=== PATIENT | female | born 1985 | race Caucasian/White ===

== ENCOUNTER 2016-07-08 07:46 | Observation (INO) | payer OTHER ==
[~2016-07-08] VITALS: Ht 162.6 cm; Wt 70.4 kg
[~2016-07-08 07:46] MED LIST: BUPR150T11 PO; COLA50CA3 AD; IBUP80TA PO; PERC7.5T12 PO; PRENTAB40 PO
[2016-07-08] MEDS ORDERED: CHARCOAL ACTIVATED LIQUID 25 GM/120 ML BTL As Ordered ONE (08:34)
[2016-07-08 08:42] LABS: MEAN CORPUSCULAR HEMOGLOBIN 29.7 pg (27.0-33.0); MEAN CORPUSCULAR VOLUME 87.4 fl (80.0-96.0); RED CELL DISTRIBUTION WIDTH 12.8 % (11.5-14.5); WHITE BLOOD COUNT 8.2 K/mm3 (4.0-10.0)
[2016-07-08 08:54] LABS: AMPHETAMINES LEVEL URINE NEGATIVE (NEGATIVE); BENZODIAZEPINES URINE NEGATIVE (NEGATIVE); COCAINE METABOLITE URINE NEGATIVE (NEGATIVE); CONTROL LINE INT CTR LINE PRESENT; METHADONE URINE NEGATIVE (NEGATIVE); OPIATES URINE NEGATIVE (NEGATIVE); TRICYCLIC ANTIDEPRESS URINE NEGATIVE (NEGATIVE)
[2016-07-08 08:58] LABS: CONTROL LINE HCG INT CTR LINE PRESENT
[2016-07-08 09:13] LABS: ALBUMIN 3.8 GM/DL (3.2-5.2); ALBUMIN/GLOBULIN RATIO 1.19 (1.00-1.93); ALKALINE PHOSPHATASE 66 U/L (45-117); ALT/SGPT 38 U/L (12-78); ANION GAP 7 MEQ/L (8-16); AST/SGOT 23 U/L (15-37); BILIRUBIN,DIRECT 0.1 MG/DL (0.0-0.2); BILIRUBIN,TOTAL 0.6 MG/DL (0.2-1.0); BLOOD UREA NITROGEN 13 MG/DL (7-18); CALCIUM LEVEL 8.7 MG/DL (8.5-10.1); CARBON DIOXIDE LEVEL 26 MEQ/L (21-32); CHLORIDE LEVEL 107 MEQ/L (98-107); CREATININE FOR GFR 0.65 MG/DL (0.55-1.02); GLOMERULAR FILTRATION RATE > 60.0 (>60); GLUCOSE, FASTING 90 MG/DL (70-105); POTASSIUM SERUM 3.9 MEQ/L (3.5-5.1); SODIUM LEVEL 140 MEQ/L (136-145)
[2016-07-08] MEDS ORDERED: WELLTAB40 PO (09:19)
[2016-07-08] MEDS ORDERED: DOXY-278 PO (09:19)
[2016-07-08] MEDS ORDERED: FLUO20CA9 PO (09:19)
[2016-07-08 13:53] VITALS: BP 125/68
--- NOTE | 2016-07-08 15:18 | HPEPDOC ---
General Date of Admission Jul 08, 2016 at 12:14 Chief Complaint The patient is a 31-year-old female admitted with a reason for visit of Accidental Medication Error. Source: Patient Exam Limitations: No limitations Timing/Duration: 1-3 hours Severity: Mild Associated Symptoms: Nausea History of Present Illness 31 year old female woke up early this morning, and possibly took her Wellbutrin ER. Went back to sleep, woke up again and took her medication, possibly repeat dosing. Patient denies any suicidal ideation, denies any history of suicidal ideation. Denies any other complaints, denies chest pain, shortness of breath, headaches, abdominal pain, N/V/D. States she had some minor nausea this morning however she attributes this to her anxiety from her potential medication error. Home Medications Scheduled Bupropion HCl (Wellbutrin Xl) 300 Mg Tab 300 MG PO DAILY (Reported) Doxycycline Hyclate (Doxycycline) 100 Mg Cap 200 MG PO DAILY (Reported) Fluoxetine Hcl (Fluoxetine HCl) 20 Mg Cap 20 MG PO DAILY (Reported) Allergies Coded Allergies: No Known Drug Allergy (Verified Allergy, Unknown, 08/30/12) Past Medical History Medical History 1. Anxiety/depression 2. Acne vulgaris Social History * Smoker: non-smoker Alcohol: denies Drugs: denies Review of Symptoms Constitutional: Denies: Chills, Fatigue, Fever, Lethargy, Malaise, Night Sweats , Other, Weakness, Weight Loss Eyes: Denies: Conjunctivae inflammation, Eyelid inflammation, Other, Pain, Redness, Vision change ENT: Denies: Dysphagia, Ear Pain, Epistaxis, Head Aches, Other Symptoms, Post Nasal Drip, Sinus Congestion, Sore Throat Skin: Denies: Breakdown, Bruising, Dry, Itching, Jaundice, Lesions, Nail Changes, Other, Rash Pulmonary: Denies: Cough, Dyspnea, Other Symptoms, Pleuritic Chest Pain Cardiovascular: Denies: Chest Pain, Edema, Lt Headedness, Orthopnea, Other Symptoms, Palpitations, Paroxysmal Noc. Dyspnea Gastrointestinal: Denies: Abdominal Pain, Constipation, Diarrhea, Hematochezia , Melena, Nausea, Other Symptoms, Vomiting Genitourinary: Denies: Dysuria, Frequency, Hematuria, Incontinence, Other Symptoms, Retention Physical Examination General Exam: Positive: Alert, Cooperative, No Acute Distress Eye Exam: Positive: Conjunctiva & lids normal, EOMI, PERRLA, Negative: Sclera icteric ENT Exam: Positive: Atraumatic Neck Exam: Positive: Supple Chest Exam: Positive: Clear to auscultation, Normal air movement Heart Exam: Positive: Rate Normal, Regular Rhythm Telemetry: Positive: No significant arrhythmia Abdomen Exam: Positive: Normal bowel sounds, Soft, Negative: Tenderness Extremity Exam: Negative: Edema Vital Signs Refer to ER documentation. Laboratory Data Labs 24H Laboratory Tests 2 07/08/16 08:26: Acetaminophen Level < 2.0L, Aspartate Amino Transf (AST/SGOT) 23, Alanine Aminotransferase (ALT/SGPT) 38, Alkaline Phosphatase 66, Total Bilirubin 0.6, Direct Bilirubin 0.1, Albumin 3.8, Albumin/Globulin Ratio 1.19, Anion Gap 7L, Calcium Level 8.7, Ethyl Alcohol Level < 0.003, Glomerular Filtration Rate > 60.0, Human Chorionic Gonadotropin, Qual NEGATIVE, Salicylates Level < 1.7L, Thyroid Stimulating Hormone (TSH) 1.290, Total Protein 7.0, Urine Amphetamine Level NEGATIVE, Urine Benzodiazepines Screen NEGATIVE, Urine Cannabinoids NEGATIVE, Urine Cocaine Metabolite NEGATIVE, Urine Opiates Screen NEGATIVE, Urine Barbiturates, Qualitative NEGATIVE, Urine Methadone Screen NEGATIVE, Urine Tricyclic Antidepressants NEGATIVE CBC/BMP Laboratory Tests 07/08/16 08:26 Red Blood Count 4.60, Mean Corpuscular Volume 87.4, Mean Corpuscular Hemoglobin 29.7, Mean Corpuscular Hemoglobin Concent 34.0, Red Cell Distribution Width 12.8 Problems (1) Accidental medication error Status: Acute Response to Treatment: Stable Discussed With: Patient Problem Specific Plan: Monitor Clinically, Repeat Labs Problem Text: Poison control contacted, recommending 24 hour observation. Admitted for telemetry monitoring, will check labs in am. Discussed strategies to prevent repeat error including using dosettes. (2) Acne Status: Chronic Discussed With: Patient Problem Text: Continue with doxycycline as per home regimen. Plan / VTE VTE Prophylaxis Ordered?: No VTE Exclusion Mechanical Proph: Low Risk for VTE Plan Plan Monitor 24 hours as per poison control recommendations. Disposition Anticipate discharge in 24 hours. Diet: Continue Current Activity: Continue Current Diagnostics: Repeat Labs in AM Anticipated Discharge: Home MANGO CASTELAN MD Jul 08, 2016 15:18
[2016-07-08 16:30] VITALS: BP 140/81
--- NOTE | 2016-07-08 16:31 | EDDOCDS ---
Nurse's Notes [facility] Name: Aisha Palm Age: 31 yrs Sex: Female : 1985 Arrival Date: 07/08/2016 Time: 07:46 Bed Admit Hold Private MD: Caesar Medrano Diagnosis: Poisoning by other antipsychotics and neuroleptics, accidental (unintentional)-rule out Presentation: 07/08 07:47 Presenting complaint: Patient states: states I may have taken all of my medicines [facility] twice. States got up earlier than normal with different routine. Medicines Wellbutrin 300 mg, doxycycline 200mg, and prozac 20 mg. can not recall specifically taking 1st dose, so is unsure if additional were take, Now with nausea , no vomiting and slightly sweaty. Poison control encouraged ED visit. Adult Sepsis Screening: The patient does not have new or worsening altered mentation. Patient's respiratory rate is less than 22. Systolic blood pressure is greater than 100. Patient has a qSOFA score of 0- Negative Sepsis Screen. Suicide/Homicide risk assessment- the patient denies having any suicidal and/or homicidal ideations and does not present with any other emotional, behavioral or mental health complaints. Status: Patient is not a library services dean or dependent. Transition of care: patient was not received from another setting of care. 07:47 Acuity: INDY Level 4 [facility] 07:47 Method Of Arrival: Ambulance [facility] 08:17 Presenting complaint: poison control contacted. provider aware of recommendations. [facility] Triage Assessment: 07:53 General: Appears in no apparent distress. Pain: Denies pain. HIV screening NA for this [facility] visit Offered previously. 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 Wellbutrin XL 300 mg Oral Tb24 1 tab once daily 2. doxycycline hyclate 200 mg Oral TbEC 1 tab once daily 3. Prozac 20 mg Oral cap 1 cap once daily - PMHx: Depression; - PSHx: ; - Social history: Smoking status: Patient uses tobacco products, current some day smoker. No barriers to communication noted, The patient speaks fluent Cymraes. - Family history: Not pertinent. - : The pt / caregiver states he / she is not on anticoagulants. Home medication list is obtained from the patient. - Exposure Risk Screening:: None identified. Screenin:11 Screening information is obtained from the patient. Fall risk: No risks identified. jmk Assistance ADL's: requires no assistance with activities of daily living. Abuse/DV Screen: The patient / caregiver reports he/she is: not in a situation that causes fear, pain or injury. Nutritional screening: No deficits noted. Advance Directives: Currently, there is no health care proxy. There is no active DNR order. There is no living will. There is no Power of Back Up Machine Operator. Advance directive information has not previously been placed in an [facility] medical record. Further advance directive information is declined. home support is adequate. Assessment: 09:11 General: Appears skin warm and dry color satisfactory . moist pink oral mucosa. no resp jmk distress noted. chest CTA. abd soft and non distended with bowel sounds present x 4. no diaphoresis. monitor is sr without ectopy. Pleasant and conversive. appropriate eye contact and content of reesponses.. 10:52 General: Appears quielty awaiting bed avail. monitor is sr. without symptoms. jmk 12:06 General: Appears no symptoms. SR. awaiting admssion. jmk 13:47 General: Appears without symptoms. remains pleasant and cooperative. diet provided and jmk taken well. Monitor SR. 15:35 General: Appears patiently awaiting bed avail. jmk 16:25 General: Appears without symptoms. Monitor is sr without ectopy.. percy Social Work Consult: 10:21 Social Work Note: Pt is being admitted for accidental ingestion of her medications. Pt ac states she got up earlier than usual, took her meds, and then later took them again. Pt states she began feeling nauseated so decided to come to ED. PT denies SI/HI, no AH/VH. Pt states her daughter, Casandra, was to have her intake at [facility] at 0930, did not call to cancel due to being in ED. Colin contacted by this commercial lines underwriter at pt's request to inform them of reason for pt's daughter being a no show. Colin states they will not count this against mother, will inform therapist. Pt to be medically admitted for further observation. Vital Signs: 07:53 BP 120 / 84; Pulse 86; Resp 16; Temp 97.2; Pulse Ox 99% ; Weight 68.04 kg; Height 5 ft. k 4 in. (162.56 cm); 08:32 BP 128 / 73 (auto/); jmk 08:33 Pulse 78 MON; Pulse Ox 100% ; jmk 08:53 Pulse 88 MON; Pulse Ox 97% ; jmk 08:54 BP 109 / 73 (auto/); jmk 09:23 Pulse 84 MON; Pulse Ox 98% ; jmk 09:24 BP 117 / 74 (auto/); jmk 09:54 BP 123 / 79 (auto/); jmk 09:54 Pulse 88 MON; Pulse Ox 98% ; jmk 10:23 Pulse 86 MON; Pulse Ox 97% ; jmk 10:24 BP 112 / 67 (auto/); Resp 16; jmk 13:47 BP 125 / 68; Pulse 98; Resp 16; jmk 16:23 BP 141 / 63; Pulse 87; Resp 17; Temp 98.7(T); Pulse Ox 98% on R/A; lr2 07:53 Body Mass Index 25.75 (68.04 kg, 162.56 cm) [facility] Vitals: 07:53 Log In Time N/A - ambulance arrival. [facility] ED Course: 07:47 Patient visited by Jazzy Shields PCA. rs6 07:47 Caesar Medrano is Private Physician. rs6 07:47 Ruby Lam,FIONA is Primary Nurse. rs6 07:47 Patient moved to Waiting rs6 07:47 Patient moved to 8 rs6 07:51 Triage Initiated jmk 07:54 Fabi Whitney MD is Attending Physician. ml 07:54 Patient visited by Fabi Whitney MD. ml 08:38 [facility] Payment Agreement was scanned into [employer] and attached to record. mm15 08:44 Inserted saline lock: 20 gauge in left antecubital area. jmk 09:07 Patient visited by Jazzy Shields PCA. rs6 09:11 The patient / caregiver is instructed regarding the plan of care and ED course. jmk 09:14 Patient visited by Caesar Peck,FIONA. jmk 09:15 Chapincito Mckee is Hospitalizing Provider. ml 13:00 Patient moved to Admit Hold kpj 13:08 Patient visited by Anni Lundberg PCA. ar3 13:08 Diet: Patient refused offered diet. patient had other food brought in by a family ar3 member . 15:33 T-Sheet-- Draft Copy was scanned into [employer] and attached to record. gb 16:25 No procedures done that require assistance. jmk Administered Medications: 08:43 Drug: Activated Charcoal (1g/kg) 70 grams [activated charcoal 25 gram/120 mL oral jmk suspension (6720 drps)] Route: PO; 09:11 CANCELLED (Other Intervention Used): LORazepam 1 mg PO once jmk Order Results: Lab Order: Acetaminophen Level; SPEC'M 07/08/16 08:26 Test: ACETAMINOPHEN LEVEL; Value: < 2.0; Range: 10.0-30.0; Abnormal: Below low normal; Units: UG/ML; Status: F Lab Order: Basic Metabolic Profile; SPEC'M 07/08/16 08:26 Test: GLUCOSE, FASTING; Value: 90; Range: 70-105; Units: MG/DL; Status: F Test: BLOOD UREA NITROGEN; Value: 13; Range: 7-18; Units: MG/DL; Status: F Test: CREATININE FOR GFR; Value: 0.65; Range: 0.55-1.02; Units: MG/DL; Status: F Test: SODIUM LEVEL; Range: 136-145; Units: MEQ/L; Status: I Test: POTASSIUM SERUM; Range: 3.5-5.1; Units: MEQ/L; Status: I Test: CHLORIDE LEVEL; Range: 98-107; Units: MEQ/L; Status: I Test: CARBON DIOXIDE LEVEL; Range: 21-32; Units: MEQ/L; Status: I Test: ANION GAP; Range: 8-16; Units: MEQ/L; Status: I Test: CALCIUM LEVEL; Range: 8.5-10.1; Units: MG/DL; Status: I Test: GLOMERULAR FILTRATION RATE; Value: > 60.0; Range: >60; Status: F Test: SODIUM LEVEL; Value: 140; Range: 136-145; Units: MEQ/L; Status: F Test: POTASSIUM SERUM; Value: 3.9; Range: 3.5-5.1; Units: MEQ/L; Status: F Test: CHLORIDE LEVEL; Value: 107; Range: 98-107; Units: MEQ/L; Status: F Test: CARBON DIOXIDE LEVEL; Value: 26; Range: 21-32; Units: MEQ/L; Status: F Test: ANION GAP; Value: 7; Range: 8-16; Abnormal: Below low normal; Units: MEQ/L; Status: F Test: CALCIUM LEVEL; Value: 8.7; Range: 8.5-10.1; Units: MG/DL; Status: F Test Note: ; Units are mL/min/1.73 m2 Chronic Kidney Disease Staging per NKF: Stage I & II GFR >=60 Normal to Mildly Decreased Stage III GFR 30-59 Moderately Decreased Stage IV GFR 15-29 Severely Decreased Stage V GFR <15 Very Little GFR Left ESRD GFR <15 on PREPRESS STRIPPER Lab Order: Complete Blood Count; SPEC'M 07/08/16 08:26 Test: WHITE BLOOD COUNT; Value: 8.2; Range: 4.0-10.0; Units: K/mm3; Status: F Test: RED BLOOD COUNT; Value: 4.60; Range: 4.00-5.40; Units: M/mm3; Status: F Test: HEMOGLOBIN; Value: 13.7; Range: 12.0-16.0; Units: g/dl; Status: F Test: HEMATOCRIT; Value: 40.2; Range: 36.0-47.0; Units: %; Status: F Test: MEAN CORPUSCULAR VOLUME; Value: 87.4; Range: 80.0-96.0; Units: fl; Status: F Test: MEAN CORPUSCULAR HEMOGLOBIN; Value: 29.7; Range: 27.0-33.0; Units: pg; Status: F Test: MEAN CORPUSCULAR HGB CONC; Value: 34.0; Range: 32.0-36.5; Units: g/dl; Status: F Test: RED CELL DISTRIBUTION WIDTH; Value: 12.8; Range: 11.5-14.5; Units: %; Status: F Test: PLATELET COUNT, AUTOMATED; Value: 218; Range: 150-450; Units: k/mm3; Status: F Lab Order: Drug Eval Toxicology ED Only; SPEC'M 07/08/16 08:26 Test: AMPHETAMINES LEVEL URINE; Value: NEGATIVE; Range: NEGATIVE; Status: F Test: BARBITURATES URINE; Value: NEGATIVE; Range: NEGATIVE; Status: F Test: BENZODIAZEPINES URINE; Value: NEGATIVE; Range: NEGATIVE; Status: F Test: CANNABINOIDS URINE; Value: NEGATIVE; Range: NEGATIVE; Status: F Test: COCAINE METABOLITE URINE; Value: NEGATIVE; Range: NEGATIVE; Status: F Test: METHADONE URINE; Value: NEGATIVE; Range: NEGATIVE; Status: F Test: OPIATES URINE; Value: NEGATIVE; Range: NEGATIVE; Status: F Test: TRICYCLIC ANTIDEPRESS URINE; Value: NEGATIVE; Range: NEGATIVE; Status: F Test Note: ; ALL PRESUMPTIVE POSITIVE FINDINGS ARE UNCONFIRMED NORMAL VALUES THRESHOLD IN NG/ML AMPHETAMINES 1000 METHAMPHETAMINES 1000 BARBITURATES 300 BENZODIAZEPINES 300 CANNABINOIDS (THC) 50 COCAINE METABOLITE 300 METHADONE 300 OPIATES 300 PHENCYCLIDINE 25 TRICYCLIC ANTIDEPRESSANTS 1000 RESULTS ARE FOR MEDICAL PURPOSES ONLY. ALL URINE SPECIMENS WILL BE SAVED FOR 3 DAYS. IF CONFIRMATION OF A PRESUMPTIVE POSTIVE SCREEN RESULT IS DESIRED, CALL CHEMISTRY ([phone]) AND REQUEST URINE TO BE SENT TO REFERENCE LAB. FOR A LIST OF CLOSELY RELATED COMPOUNDS PLEASE CALL THE LAB. Lab Order: Ethyl Alcohol (ethanol); SPEC'M 07/08/16 08:26 Test: ETHYL ALCOHOL (ETHANOL); Value: < 0.003; Range: 0.000-0.010; Units: %; Status: F Lab Order: HCG,Serum Qualitative; SPEC'M 07/08/16 08:26 Test: HCG, SERUM QUALITATIVE; Value: NEGATIVE; Range: NEGATIVE; Status: F Lab Order: Liver Profile; SPEC' 07/08/16 08:26 Test: AST/SGOT; Value: 23; Range: 15-37; Units: U/L; Status: F Test: ALT/SGPT; Value: 38; Range: 12-78; Units: U/L; Status: F Test: ALKALINE PHOSPHATASE; Value: 66; Range: 45-117; Units: U/L; Status: F Test: BILIRUBIN,TOTAL; Value: 0.6; Range: 0.2-1.0; Units: MG/DL; Status: F Test: BILIRUBIN,DIRECT; Value: 0.1; Range: 0.0-0.2; Units: MG/DL; Status: F Test: TOTAL PROTEIN; Value: 7.0; Range: 6.4-8.2; Units: GM/DL; Status: F Test: ALBUMIN; Value: 3.8; Range: 3.2-5.2; Units: GM/DL; Status: F Test: ALBUMIN/GLOBULIN RATIO; Value: 1.19; Range: 1.00-1.93; Status: F Lab Order: Salicylate Level; SPEC'M 07/08/16 08:26 Test: SALICYLATE LEVEL; Value: < 1.7; Range: 5.0-30.0; Abnormal: Below low normal; Units: MG/DL; Status: F Lab Order: Thyroid Stimulating Hormone; SPEC'M 07/08/16 08:26 Test: THYROID STIMULATING HORMONE; Value: 1.290; Range: 0.358-3.740; Units: uIU/ML; Status: F Outcome: 09:16 Decision to Hospitalize by Provider. 16:25 Discharge Assessment: Patient awake, alert and oriented x 3. No cognitive and/or k functional deficits noted. Patient verbalized understanding of disposition instructions. patient administered narcotics - no. The following High Risk Discharge criteria are identified: None. Condition: good. Discharge instructions given to patient, Instructed on discharge instructions, follow up and referral plans. medication usage, Demonstrated understanding of instructions, medications. No special radiology studies were completed. Admission hand-off: Report called to monty gupta. Property :Personal belongings accompany Pt. 16:30 Patient left the ED. percy Signatures: Fabi Whitney MD MD ml Jobson, Karen, RN RN Caesar Briggs,RN RN percy Son, Salazar, PSA PSA ac Tab, Jaimie, Reg Reg gb Anni Lundberg, OFFICE HELPER OFFICE HELPER ar3 David Mandujano mm15 Jazzy Shields, OFFICE HELPER OFFICE HELPER rs6 Irais Payton lr2 Corrections: (The following items were deleted from the chart) 07:56 07:47 Presenting complaint: Patient states: states I may have taken all of my medicines percy twice. States got up earlier than normal with different routine. Medicines Wellbutrin 300 mg, doxycycline 200mg, and prozac 25 mg. can not recall specifically taking 1st dose, so is unsure if additional were take, Now with nausea , no vomiting and slightly sweaty. Poison control encouraged ED visit. percy MTDD
--- NOTE | 2016-07-08 16:31 | EDDOCDS ---
Physician Documentation [facility] Name: Aisha Palm Age: 31 yrs Sex: Female : 1985 Arrival Date: 07/08/2016 Time: 07:46 Bed Admit Hold Private MD: Caesar Medrano Disposition: 07/08 09:16 Critical Care:. ml Disposition: 07/08/16 09:16 Hospitalization ordered by Chapincito Mckee for Inpatient Admission. Preliminary diagnosis is Poisoning by other antipsychotics and neuroleptics, accidental (unintentional) - rule out. - Bed requested for PCU. - Status is Inpatient Admission. jmk - Condition is Stable. - Problem is new. - Symptoms are unchanged. Historical: - Allergies: no known allergies; - Home Meds: 1. Wellbutrin XL 300 mg Oral Tb24 1 tab once daily 2. doxycycline hyclate 200 mg Oral TbEC 1 tab once daily 3. Prozac 20 mg Oral cap 1 cap once daily - PMHx: Depression; - PSHx: ; - Social history: Smoking status: Patient uses tobacco products, current some day smoker. No barriers to communication noted, The patient speaks fluent Jamaican. - Family history: Not pertinent. - : The pt / caregiver states he / she is not on anticoagulants. Home medication list is obtained from the patient. - Exposure Risk Screening:: None identified. 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 4 in. (162.56 cm); 08:32 BP 128 / 73 (auto/); jmk 08:33 Pulse 78 MON; Pulse Ox 100% ; jmk 08:53 Pulse 88 MON; Pulse Ox 97% ; jmk 08:54 BP 109 / 73 (auto/); jmk 09:23 Pulse 84 MON; Pulse Ox 98% ; jmk 09:24 BP 117 / 74 (auto/); jmk 09:54 BP 123 / 79 (auto/); jmk 09:54 Pulse 88 MON; Pulse Ox 98% ; jmk 10:23 Pulse 86 MON; Pulse Ox 97% ; jmk 10:24 BP 112 / 67 (auto/); Resp 16; jmk 13:47 BP 125 / 68; Pulse 98; Resp 16; jmk 16:23 BP 141 / 63; Pulse 87; Resp 17; Temp 98.7(T); Pulse Ox 98% on R/A; lr2 07:53 Body Mass Index 25.75 (68.04 kg, 162.56 cm) percy MDM: 07:59 Call Poison Control ordered. ml 08:00 ECG WITH READING ER PHYS+CARDIAG ordered. EDMS 08:12 Financial registration complete. mm15 08:16 IV Saline Lock ordered. ml 08:16 Activated Charcoal (1g/kg) Suspension 70 grams PO once ordered. ml 08:16 Consult PFS/PSA/Electronic Train Control Technician ordered. ml 08:16 Consult PFS/PSA/Electronic Train Control Technician: Patient's case requires discussion with on-call ml Psychiatrist ordered. 08:16 PSA/PFS to call Nursing Packaging Sales Representative, to enter patient data on [place] Safe Act if patient ml involuntarily admitted or transferred for SI or HI ordered. 08:16 Call Poison Control ordered. ml 08:16 Lining Scrubber/Pulse Ox/q 15 min VS ordered. ml 08:16 Confirm accurate psychiatric medication list and times of last dosage ordered. ml 08:16 Detain Pt Until Medically/PFS Cleared ordered. ml 08:16 Rhythm Strip to chart ordered. ml 08:17 Acetaminophen Level Ordered. EDMS 08:17 Basic Metabolic Profile Ordered. EDMS 08:17 Complete Blood Count Ordered. EDMS 08:17 Drug Eval Toxicology ED Only Ordered. EDMS 08:17 Ethyl Alcohol (ethanol) Ordered. EDMS 08:17 HCG,Serum Qualitative Ordered. EDMS 08:17 Liver Profile Ordered. EDMS 08:17 Salicylate Level Ordered. EDMS 08:17 Thyroid Stimulating Hormone Ordered. EDMS 08:17 BED REQUEST+ADM ordered. EDMS 08:38 [facility] [place] Agreement was scanned into [employer] and attached to record. mm15 09:02 Complete Blood Count Reviewed. ml 09:02 Drug Eval Toxicology ED Only Reviewed. ml 09:02 HCG,Serum Qualitative Reviewed. ml 09:13 Consult PFS/PSA/Electronic Train Control Technician ordered. ml 09:51 Acetaminophen Level Reviewed. ml 09:51 Basic Metabolic Profile Reviewed. ml 09:51 Salicylate Level Reviewed. ml 09:51 Ethyl Alcohol (ethanol) Reviewed. ml 09:51 HCG,Serum Qualitative Reviewed. ml 09:51 Liver Profile Reviewed. ml 09:51 Thyroid Stimulating Hormone Reviewed. ml 11:31 Consult PFS/PSA/Electronic Train Control Technician complete. jl 12:14 Consult PFS/PSA/Electronic Train Control Technician complete. jl 12:19 Admission / Observation Status ordered. EDMS 12:19 REGULAR DIET ordered. EDMS 15:33 T-Sheet-- Draft Copy was scanned into [employer] and attached to record. gb Administered Medications: 08:43 Drug: Activated Charcoal (1g/kg) 70 grams [activated charcoal 25 gram/120 mL oral jmk suspension (6720 drps)] Route: PO; 09:11 CANCELLED (Other Intervention Used): LORazepam 1 mg PO once jmk Critical Care Time: 09:16 Critical care time: Bedside Care: 90 minutes. Total time: 90 minutes ml Signatures: Dispatcher [employer] EDMI Fabi Whitney MD MD ml Jobson, Karen RN RN Caesar BriggsRN Thiago Myers, PSA PSA Jaimie Parikh, Reg Reg David Patiño mm15 Jazzy Shields, BYRON TRAPEZE PERFORMER rs6 The chart was reviewed and I authenticate all verbal orders and agree with the evaluation and treatment provided.Corrections: (The following items were deleted from the chart) 09:11 09:05 LORazepam 1 mg PO once ordered. percy Attachments: 08:38 [facility] Payment Agreement mm15 15:33 T-Sheet-- Draft Copy gb MTDD
[2016-07-08 21:16] VITALS: BP 127/73
[2016-07-08 23:59] VITALS: BP 119/71
[2016-07-09 05:30] VITALS: BP 134/87
[2016-07-09 06:03] LABS: MEAN CORPUSCULAR HEMOGLOBIN 29.8 pg (27.0-33.0); MEAN CORPUSCULAR HGB CONC 33.2 g/dl (32.0-36.5); MEAN CORPUSCULAR VOLUME 89.9 fl (80.0-96.0); WHITE BLOOD COUNT 7.3 K/mm3 (4.0-10.0)
[2016-07-09 06:23] LABS: ALBUMIN 3.6 GM/DL (3.2-5.2); ALBUMIN/GLOBULIN RATIO 1.16 (1.00-1.93); ALKALINE PHOSPHATASE 61 U/L (45-117); ALT/SGPT 41 U/L (12-78); ANION GAP 8 MEQ/L (8-16); AST/SGOT 25 U/L (15-37); BILIRUBIN,TOTAL 0.6 MG/DL (0.2-1.0); BLOOD UREA NITROGEN 15 MG/DL (7-18); CALCIUM LEVEL 8.3 MG/DL (8.5-10.1); CARBON DIOXIDE LEVEL 25 MEQ/L (21-32); CHLORIDE LEVEL 107 MEQ/L (98-107); CREATININE FOR GFR 0.61 MG/DL (0.55-1.02); GLOMERULAR FILTRATION RATE > 60.0 (>60); GLUCOSE, FASTING 91 MG/DL (70-105); POTASSIUM SERUM 3.9 MEQ/L (3.5-5.1); SODIUM LEVEL 140 MEQ/L (136-145); TOTAL PROTEIN 6.7 GM/DL (6.4-8.2)
--- NOTE | 2016-07-09 07:43 | ECGEPIP ---
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
[2016-07-09 08:00] VITALS: BP 123/78
[2016-07-09] MEDS ORDERED: buPROPion **XL** TABLET 150MG (WELLBUTRIN XL) PO SCH (09:00)
[2016-07-09] MEDS ORDERED: DOXYCYCLINE HYCLATE 100 MG TAB PO SCH (09:00)
[2016-07-09] MEDS ORDERED: FLUoxetine 20 MG CAP PO SCH (09:00)
--- NOTE | 2016-07-09 17:10 | IPN ---
DATE: 07/09/2016 Patient is doing well this morning. A little embarrassed that she stayed in the hospital overnight and under those circumstances. No complaints of pain, palpitations, chest pain, or shortness of breath. Temperature 96.9, pulse 78, respiratory rate 18, blood pressure 123/78, 99% on room air. Intake and output notable for a negative fluid balance of -370. Body mass index 26.6. She is awake, appropriately interactive, pleasantly conversant. Breathing is symmetrical and rested. Heart is in a regular rate and rhythm. No arrhythmia on the monitor. Abdomen soft, doughy, nontender. White cell count is 7.3. Creatinine 0.6. ASSESSMENT: This is a 31-year-old with an accidental overdose of Wellbutrin possibly. PLAN: Accidental medication error. I have discussed the use of a pill sorting device so that she can better keep track of her daily medications. This clearly was not any attempt to injure herself. Recommending followup with and recommending continuing all of her home medications at the current doses.
[2016-07-10] MEDS ORDERED: INFLUENZA QUADRIVALENT PF VACCINE 0.5ML SYRINGE/VIAL (90686) IM SCH (09:00)
--- NOTE | 2016-07-10 17:31 | EDDOCDS ---
Nurse's Notes [facility] Name: Aisha Palm Age: 31 yrs Sex: Female : 1985 Arrival Date: 07/08/2016 Time: 07:46 Bed Admit Hold Private MD: Caesar Medrano Diagnosis: Poisoning by other antipsychotics and neuroleptics, accidental (unintentional)-rule out Presentation: 07/08 07:47 Presenting complaint: Patient states: states I may have taken all of my medicines [facility] twice. States got up earlier than normal with different routine. Medicines Wellbutrin 300 mg, doxycycline 200mg, and prozac 20 mg. can not recall specifically taking 1st dose, so is unsure if additional were take, Now with nausea , no vomiting and slightly sweaty. Poison control encouraged ED visit. Adult Sepsis Screening: The patient does not have new or worsening altered mentation. Patient's respiratory rate is less than 22. Systolic blood pressure is greater than 100. Patient has a qSOFA score of 0- Negative Sepsis Screen. Suicide/Homicide risk assessment- the patient denies having any suicidal and/or homicidal ideations and does not present with any other emotional, behavioral or mental health complaints. Status: Patient is not a parking meter servicer or dependent. Transition of care: patient was not received from another setting of care. 07:47 Acuity: INDY Level 4 [facility] 07:47 Method Of Arrival: Ambulance [facility] 08:17 Presenting complaint: poison control contacted. provider aware of recommendations. [facility] Triage Assessment: 07:53 General: Appears in no apparent distress. Pain: Denies pain. HIV screening NA for this [facility] visit Offered previously. 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 Wellbutrin XL 300 mg Oral Tb24 1 tab once daily 2. doxycycline hyclate 200 mg Oral TbEC 1 tab once daily 3. Prozac 20 mg Oral cap 1 cap once daily - PMHx: Depression; - PSHx: ; - Social history: Smoking status: Patient uses tobacco products, current some day smoker. No barriers to communication noted, The patient speaks fluent Guatemalan. - Family history: Not pertinent. - : The pt / caregiver states he / she is not on anticoagulants. Home medication list is obtained from the patient. - Exposure Risk Screening:: None identified. Screenin:11 Screening information is obtained from the patient. Fall risk: No risks identified. jmk Assistance ADL's: requires no assistance with activities of daily living. Abuse/DV Screen: The patient / caregiver reports he/she is: not in a situation that causes fear, pain or injury. Nutritional screening: No deficits noted. Advance Directives: Currently, there is no health care proxy. There is no active DNR order. There is no living will. There is no Power of Mixing Supervisor. Advance directive information has not previously been placed in an [facility] medical record. Further advance directive information is declined. home support is adequate. Assessment: 09:11 General: Appears skin warm and dry color satisfactory . moist pink oral mucosa. no resp jmk distress noted. chest CTA. abd soft and non distended with bowel sounds present x 4. no diaphoresis. monitor is sr without ectopy. Pleasant and conversive. appropriate eye contact and content of reesponses.. 10:52 General: Appears quielty awaiting bed avail. monitor is sr. without symptoms. jmk 12:06 General: Appears no symptoms. SR. awaiting admssion. jmk 13:47 General: Appears without symptoms. remains pleasant and cooperative. diet provided and jmk taken well. Monitor SR. 15:35 General: Appears patiently awaiting bed avail. jmk 16:25 General: Appears without symptoms. Monitor is sr without ectopy.. percy Social Work Consult: 10:21 Social Work Note: Pt is being admitted for accidental ingestion of her medications. Pt ac states she got up earlier than usual, took her meds, and then later took them again. Pt states she began feeling nauseated so decided to come to ED. PT denies SI/HI, no AH/VH. Pt states her daughter, Casandra, was to have her intake at [facility] at 0930, did not call to cancel due to being in ED. Colin contacted by this display card writer at pt's request to inform them of reason for pt's daughter being a no show. Colin states they will not count this against mother, will inform therapist. Pt to be medically admitted for further observation. Vital Signs: 07:53 BP 120 / 84; Pulse 86; Resp 16; Temp 97.2; Pulse Ox 99% ; Weight 68.04 kg; Height 5 ft. k 4 in. (162.56 cm); 08:32 BP 128 / 73 (auto/); jmk 08:33 Pulse 78 MON; Pulse Ox 100% ; jmk 08:53 Pulse 88 MON; Pulse Ox 97% ; jmk 08:54 BP 109 / 73 (auto/); jmk 09:23 Pulse 84 MON; Pulse Ox 98% ; jmk 09:24 BP 117 / 74 (auto/); jmk 09:54 BP 123 / 79 (auto/); jmk 09:54 Pulse 88 MON; Pulse Ox 98% ; jmk 10:23 Pulse 86 MON; Pulse Ox 97% ; jmk 10:24 BP 112 / 67 (auto/); Resp 16; jmk 13:47 BP 125 / 68; Pulse 98; Resp 16; jmk 16:23 BP 141 / 63; Pulse 87; Resp 17; Temp 98.7(T); Pulse Ox 98% on R/A; lr2 07:53 Body Mass Index 25.75 (68.04 kg, 162.56 cm) [facility] Vitals: 07:53 Log In Time N/A - ambulance arrival. [facility] ED Course: 07:47 Patient visited by Jazzy Shields PCA. rs6 07:47 Caesar Medrano is Private Physician. rs6 07:47 Ruby Lam,FIONA is Primary Nurse. rs6 07:47 Patient moved to Waiting rs6 07:47 Patient moved to 8 rs6 07:51 Triage Initiated jmk 07:54 Fabi Whitney MD is Attending Physician. ml 07:54 Patient visited by Fabi Whitney MD. ml 08:38 [facility] Payment Agreement was scanned into [employer] and attached to record. mm15 08:44 Inserted saline lock: 20 gauge in left antecubital area. jmk 09:07 Patient visited by Jazzy Shields PCA. rs6 09:11 The patient / caregiver is instructed regarding the plan of care and ED course. jmk 09:14 Patient visited by Caesar Peck,FIONA. jmk 09:15 Chapincito Mckee is Hospitalizing Provider. ml 13:00 Patient moved to Admit Hold kpj 13:08 Patient visited by Anni Lundberg PCA. ar3 13:08 Diet: Patient refused offered diet. patient had other food brought in by a family ar3 member . 15:33 T-Sheet-- Draft Copy was scanned into [employer] and attached to record. gb 16:25 No procedures done that require assistance. jmk Administered Medications: 08:43 Drug: Activated Charcoal (1g/kg) 70 grams [activated charcoal 25 gram/120 mL oral jmk suspension (6720 drps)] Route: PO; 09:11 CANCELLED (Other Intervention Used): LORazepam 1 mg PO once jmk Order Results: Lab Order: Acetaminophen Level; SPEC'M 07/08/16 08:26 Test: ACETAMINOPHEN LEVEL; Value: < 2.0; Range: 10.0-30.0; Abnormal: Below low normal; Units: UG/ML; Status: F Lab Order: Basic Metabolic Profile; SPEC'M 07/08/16 08:26 Test: GLUCOSE, FASTING; Value: 90; Range: 70-105; Units: MG/DL; Status: F Test: BLOOD UREA NITROGEN; Value: 13; Range: 7-18; Units: MG/DL; Status: F Test: CREATININE FOR GFR; Value: 0.65; Range: 0.55-1.02; Units: MG/DL; Status: F Test: SODIUM LEVEL; Range: 136-145; Units: MEQ/L; Status: I Test: POTASSIUM SERUM; Range: 3.5-5.1; Units: MEQ/L; Status: I Test: CHLORIDE LEVEL; Range: 98-107; Units: MEQ/L; Status: I Test: CARBON DIOXIDE LEVEL; Range: 21-32; Units: MEQ/L; Status: I Test: ANION GAP; Range: 8-16; Units: MEQ/L; Status: I Test: CALCIUM LEVEL; Range: 8.5-10.1; Units: MG/DL; Status: I Test: GLOMERULAR FILTRATION RATE; Value: > 60.0; Range: >60; Status: F Test: SODIUM LEVEL; Value: 140; Range: 136-145; Units: MEQ/L; Status: F Test: POTASSIUM SERUM; Value: 3.9; Range: 3.5-5.1; Units: MEQ/L; Status: F Test: CHLORIDE LEVEL; Value: 107; Range: 98-107; Units: MEQ/L; Status: F Test: CARBON DIOXIDE LEVEL; Value: 26; Range: 21-32; Units: MEQ/L; Status: F Test: ANION GAP; Value: 7; Range: 8-16; Abnormal: Below low normal; Units: MEQ/L; Status: F Test: CALCIUM LEVEL; Value: 8.7; Range: 8.5-10.1; Units: MG/DL; Status: F Test Note: ; Units are mL/min/1.73 m2 Chronic Kidney Disease Staging per NKF: Stage I & II GFR >=60 Normal to Mildly Decreased Stage III GFR 30-59 Moderately Decreased Stage IV GFR 15-29 Severely Decreased Stage V GFR <15 Very Little GFR Left ESRD GFR <15 on SEAT SCOOPER MACHINE Lab Order: Complete Blood Count; SPEC'M 07/08/16 08:26 Test: WHITE BLOOD COUNT; Value: 8.2; Range: 4.0-10.0; Units: K/mm3; Status: F Test: RED BLOOD COUNT; Value: 4.60; Range: 4.00-5.40; Units: M/mm3; Status: F Test: HEMOGLOBIN; Value: 13.7; Range: 12.0-16.0; Units: g/dl; Status: F Test: HEMATOCRIT; Value: 40.2; Range: 36.0-47.0; Units: %; Status: F Test: MEAN CORPUSCULAR VOLUME; Value: 87.4; Range: 80.0-96.0; Units: fl; Status: F Test: MEAN CORPUSCULAR HEMOGLOBIN; Value: 29.7; Range: 27.0-33.0; Units: pg; Status: F Test: MEAN CORPUSCULAR HGB CONC; Value: 34.0; Range: 32.0-36.5; Units: g/dl; Status: F Test: RED CELL DISTRIBUTION WIDTH; Value: 12.8; Range: 11.5-14.5; Units: %; Status: F Test: PLATELET COUNT, AUTOMATED; Value: 218; Range: 150-450; Units: k/mm3; Status: F Lab Order: Drug Eval Toxicology ED Only; SPEC'M 07/08/16 08:26 Test: AMPHETAMINES LEVEL URINE; Value: NEGATIVE; Range: NEGATIVE; Status: F Test: BARBITURATES URINE; Value: NEGATIVE; Range: NEGATIVE; Status: F Test: BENZODIAZEPINES URINE; Value: NEGATIVE; Range: NEGATIVE; Status: F Test: CANNABINOIDS URINE; Value: NEGATIVE; Range: NEGATIVE; Status: F Test: COCAINE METABOLITE URINE; Value: NEGATIVE; Range: NEGATIVE; Status: F Test: METHADONE URINE; Value: NEGATIVE; Range: NEGATIVE; Status: F Test: OPIATES URINE; Value: NEGATIVE; Range: NEGATIVE; Status: F Test: TRICYCLIC ANTIDEPRESS URINE; Value: NEGATIVE; Range: NEGATIVE; Status: F Test Note: ; ALL PRESUMPTIVE POSITIVE FINDINGS ARE UNCONFIRMED NORMAL VALUES THRESHOLD IN NG/ML AMPHETAMINES 1000 METHAMPHETAMINES 1000 BARBITURATES 300 BENZODIAZEPINES 300 CANNABINOIDS (THC) 50 COCAINE METABOLITE 300 METHADONE 300 OPIATES 300 PHENCYCLIDINE 25 TRICYCLIC ANTIDEPRESSANTS 1000 RESULTS ARE FOR MEDICAL PURPOSES ONLY. ALL URINE SPECIMENS WILL BE SAVED FOR 3 DAYS. IF CONFIRMATION OF A PRESUMPTIVE POSTIVE SCREEN RESULT IS DESIRED, CALL CHEMISTRY ([phone]) AND REQUEST URINE TO BE SENT TO REFERENCE LAB. FOR A LIST OF CLOSELY RELATED COMPOUNDS PLEASE CALL THE LAB. Lab Order: Ethyl Alcohol (ethanol); SPEC'M 07/08/16 08:26 Test: ETHYL ALCOHOL (ETHANOL); Value: < 0.003; Range: 0.000-0.010; Units: %; Status: F Lab Order: HCG,Serum Qualitative; SPEC'M 07/08/16 08:26 Test: HCG, SERUM QUALITATIVE; Value: NEGATIVE; Range: NEGATIVE; Status: F Lab Order: Liver Profile; SPEC' 07/08/16 08:26 Test: AST/SGOT; Value: 23; Range: 15-37; Units: U/L; Status: F Test: ALT/SGPT; Value: 38; Range: 12-78; Units: U/L; Status: F Test: ALKALINE PHOSPHATASE; Value: 66; Range: 45-117; Units: U/L; Status: F Test: BILIRUBIN,TOTAL; Value: 0.6; Range: 0.2-1.0; Units: MG/DL; Status: F Test: BILIRUBIN,DIRECT; Value: 0.1; Range: 0.0-0.2; Units: MG/DL; Status: F Test: TOTAL PROTEIN; Value: 7.0; Range: 6.4-8.2; Units: GM/DL; Status: F Test: ALBUMIN; Value: 3.8; Range: 3.2-5.2; Units: GM/DL; Status: F Test: ALBUMIN/GLOBULIN RATIO; Value: 1.19; Range: 1.00-1.93; Status: F Lab Order: Salicylate Level; SPEC'M 07/08/16 08:26 Test: SALICYLATE LEVEL; Value: < 1.7; Range: 5.0-30.0; Abnormal: Below low normal; Units: MG/DL; Status: F Lab Order: Thyroid Stimulating Hormone; SPEC'M 07/08/16 08:26 Test: THYROID STIMULATING HORMONE; Value: 1.290; Range: 0.358-3.740; Units: uIU/ML; Status: F Outcome: 09:16 Decision to Hospitalize by Provider. 16:25 Discharge Assessment: Patient awake, alert and oriented x 3. No cognitive and/or k functional deficits noted. Patient verbalized understanding of disposition instructions. patient administered narcotics - no. The following High Risk Discharge criteria are identified: None. Condition: good. Discharge instructions given to patient, Instructed on discharge instructions, follow up and referral plans. medication usage, Demonstrated understanding of instructions, medications. No special radiology studies were completed. Admission hand-off: Report called to monty gupta. Property :Personal belongings accompany Pt. 16:30 Patient left the ED. percy Signatures: Fabi Whitney MD MD ml Jobson, Karen, RN RN Caesar Briggs,RN RN percy Son, Salazar, PSA PSA ac Tab, Jaimie, Reg Reg gb Anni Lundberg, PRODUCE SORTER PRODUCE SORTER ar3 David Mandujano mm15 Jazzy Shields, PRODUCE SORTER PRODUCE SORTER rs6 Irais Payton lr2 Corrections: (The following items were deleted from the chart) 07:56 07:47 Presenting complaint: Patient states: states I may have taken all of my medicines percy twice. States got up earlier than normal with different routine. Medicines Wellbutrin 300 mg, doxycycline 200mg, and prozac 25 mg. can not recall specifically taking 1st dose, so is unsure if additional were take, Now with nausea , no vomiting and slightly sweaty. Poison control encouraged ED visit. percy Chart Complete MTDD
--- NOTE | 2016-07-10 17:31 | EDDOCDS ---
Physician Documentation [facility] Name: Aisha Palm Age: 31 yrs Sex: Female : 1985 Arrival Date: 07/08/2016 Time: 07:46 Bed Admit Hold Private MD: Caesar Medrano Disposition: 07/08 09:16 Critical Care:. ml Disposition: 07/08/16 09:16 Hospitalization ordered by Chapincito Mckee for Inpatient Admission. Preliminary diagnosis is Poisoning by other antipsychotics and neuroleptics, accidental (unintentional) - rule out. - Bed requested for PCU. - Status is Inpatient Admission. jmk - Condition is Stable. - Problem is new. - Symptoms are unchanged. Historical: - Allergies: no known allergies; - Home Meds: 1. Wellbutrin XL 300 mg Oral Tb24 1 tab once daily 2. doxycycline hyclate 200 mg Oral TbEC 1 tab once daily 3. Prozac 20 mg Oral cap 1 cap once daily - PMHx: Depression; - PSHx: ; - Social history: Smoking status: Patient uses tobacco products, current some day smoker. No barriers to communication noted, The patient speaks fluent Russian. - Family history: Not pertinent. - : The pt / caregiver states he / she is not on anticoagulants. Home medication list is obtained from the patient. - Exposure Risk Screening:: None identified. 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 4 in. (162.56 cm); 08:32 BP 128 / 73 (auto/); jmk 08:33 Pulse 78 MON; Pulse Ox 100% ; jmk 08:53 Pulse 88 MON; Pulse Ox 97% ; jmk 08:54 BP 109 / 73 (auto/); jmk 09:23 Pulse 84 MON; Pulse Ox 98% ; jmk 09:24 BP 117 / 74 (auto/); jmk 09:54 BP 123 / 79 (auto/); jmk 09:54 Pulse 88 MON; Pulse Ox 98% ; jmk 10:23 Pulse 86 MON; Pulse Ox 97% ; jmk 10:24 BP 112 / 67 (auto/); Resp 16; jmk 13:47 BP 125 / 68; Pulse 98; Resp 16; jmk 16:23 BP 141 / 63; Pulse 87; Resp 17; Temp 98.7(T); Pulse Ox 98% on R/A; lr2 07:53 Body Mass Index 25.75 (68.04 kg, 162.56 cm) percy MDM: 07:59 Call Poison Control ordered. ml 08:00 ECG WITH READING ER PHYS+CARDIAG ordered. EDMS 08:12 Financial registration complete. mm15 08:16 IV Saline Lock ordered. ml 08:16 Activated Charcoal (1g/kg) Suspension 70 grams PO once ordered. ml 08:16 Consult PFS/PSA/Direct Of Real Estate ordered. ml 08:16 Consult PFS/PSA/Direct [employer] Estate: Patient's case requires discussion with on-call ml Psychiatrist ordered. 08:16 PSA/PFS to call Nursing Corrective Therapist, to enter patient data on [place] Safe [place] if patient ml involuntarily admitted or transferred for SI or HI ordered. 08:16 Call Poison Control ordered. ml 08:16 Limited Radiology Technician/Pulse Ox/q 15 min VS ordered. ml 08:16 Confirm accurate psychiatric medication list and times of last dosage ordered. ml 08:16 Detain Pt Until Medically/PFS Cleared ordered. ml 08:16 Rhythm Strip to chart ordered. ml 08:17 Acetaminophen Level Ordered. EDMS 08:17 Basic Metabolic Profile Ordered. EDMS 08:17 Complete Blood Count Ordered. EDMS 08:17 Drug Eval Toxicology ED Only Ordered. EDMS 08:17 Ethyl Alcohol (ethanol) Ordered. EDMS 08:17 HCG,Serum Qualitative Ordered. EDMS 08:17 Liver Profile Ordered. EDMS 08:17 Salicylate Level Ordered. EDMS 08:17 Thyroid Stimulating Hormone Ordered. EDMS 08:17 BED REQUEST+ADM ordered. EDMS 08:38 [facility] Payment Agreement was scanned into [employer] and attached to record. mm15 09:02 Complete Blood Count Reviewed. ml 09:02 Drug Eval Toxicology ED Only Reviewed. ml 09:02 HCG,Serum Qualitative Reviewed. ml 09:13 Consult PFS/PSA/[employer] ordered. ml 09:51 Acetaminophen Level Reviewed. ml 09:51 Basic Metabolic Profile Reviewed. ml 09:51 Salicylate Level Reviewed. ml 09:51 Ethyl Alcohol (ethanol) Reviewed. ml 09:51 HCG,Serum Qualitative Reviewed. ml 09:51 Liver Profile Reviewed. ml 09:51 Thyroid Stimulating Hormone Reviewed. ml 11:31 Consult PFS/PSA/[employer] complete. jl 12:14 Consult PFS/PSA/[employer] complete. jl 12:19 Admission / Observation Status ordered. EDMS 12:19 REGULAR DIET ordered. EDMS 15:33 T-Sheet-- Draft Copy was scanned into [employer] and attached to record. gb Administered Medications: 08:43 Drug: Activated Charcoal (1g/kg) 70 grams [activated charcoal 25 gram/120 mL oral jmk suspension (6720 drps)] Route: PO; 09:11 CANCELLED (Other Intervention Used): LORazepam 1 mg PO once jmk Critical Care Time: 09:16 Critical care time: Bedside Care: 90 minutes. Total time: 90 minutes ml Signatures: Dispatcher [employer] EDLA Fabi Whtiney MD MD ml Jobson, Karen, RN RN Caesar BriggsRN Thiago Myers, PSA PSA Jaimie Parikh, Reg Reg David Patiño mm15 Jazzy Shields, BYRON SUPERVISOR AUDIT CLERKS rs6 The chart was reviewed and I authenticate all verbal orders and agree with the evaluation and treatment provided.Corrections: (The following items were deleted from the chart) 09:11 09:05 LORazepam 1 mg PO once ordered. percy Attachments: 08:38 [facility] Payment Agreement mm15 15:33 T-Sheet-- Draft Copy gb Chart Complete MTDD
--- NOTE | 2016-07-10 17:31 | EDDOCDS ---
Physician Documentation [facility] Name: Aisha Palm Age: 31 yrs Sex: Female : 1985 Arrival Date: 07/08/2016 Time: 07:46 Bed Admit Hold Private MD: Caesar Medrano Disposition: 07/08 09:16 Critical Care:. ml Disposition: 07/08/16 09:16 Hospitalization ordered by Chapincito Mckee for Inpatient Admission. Preliminary diagnosis is Poisoning by other antipsychotics and neuroleptics, accidental (unintentional) - rule out. - Bed requested for PCU. - Status is Inpatient Admission. jmk - Condition is Stable. - Problem is new. - Symptoms are unchanged. Historical: - Allergies: no known allergies; - Home Meds: 1. Wellbutrin XL 300 mg Oral Tb24 1 tab once daily 2. doxycycline hyclate 200 mg Oral TbEC 1 tab once daily 3. Prozac 20 mg Oral cap 1 cap once daily - PMHx: Depression; - PSHx: ; - Social history: Smoking status: Patient uses tobacco products, current some day smoker. No barriers to communication noted, The patient speaks fluent [place] Zealander. - Family history: Not pertinent. - : The pt / caregiver states he / she is not on anticoagulants. Home medication list is obtained from the patient. - Exposure Risk Screening:: None identified. 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 4 in. (162.56 cm); 08:32 BP 128 / 73 (auto/); jmk 08:33 Pulse 78 MON; Pulse Ox 100% ; jmk 08:53 Pulse 88 MON; Pulse Ox 97% ; jmk 08:54 BP 109 / 73 (auto/); jmk 09:23 Pulse 84 MON; Pulse Ox 98% ; jmk 09:24 BP 117 / 74 (auto/); jmk 09:54 BP 123 / 79 (auto/); jmk 09:54 Pulse 88 MON; Pulse Ox 98% ; jmk 10:23 Pulse 86 MON; Pulse Ox 97% ; jmk 10:24 BP 112 / 67 (auto/); Resp 16; jmk 13:47 BP 125 / 68; Pulse 98; Resp 16; jmk 16:23 BP 141 / 63; Pulse 87; Resp 17; Temp 98.7(T); Pulse Ox 98% on R/A; lr2 07:53 Body Mass Index 25.75 (68.04 kg, 162.56 cm) percy MDM: 07:59 Call Poison Control ordered. ml 08:00 ECG WITH READING ER PHYS+CARDIAG ordered. EDMS 08:12 Financial registration complete. mm15 08:16 IV Saline Lock ordered. ml 08:16 Activated Charcoal (1g/kg) Suspension 70 grams PO once ordered. ml 08:16 Consult PFS/PSA/Slater Apprentice ordered. ml 08:16 Consult PFS/PSA/Slater Apprentice: Patient's case requires discussion with on-call ml Psychiatrist ordered. 08:16 PSA/PFS to call Nursing Accounting Clerk, to enter patient data [place] if patient ml involuntarily admitted or transferred for SI or HI ordered. 08:16 Call Poison Control ordered. ml 08:16 Social Media Coordinator/Pulse Ox/q 15 min VS ordered. ml 08:16 Confirm accurate psychiatric medication list and times of last dosage ordered. ml 08:16 Detain Pt Until Medically/PFS Cleared ordered. ml 08:16 Rhythm Strip to chart ordered. ml 08:17 Acetaminophen Level Ordered. EDMS 08:17 Basic Metabolic Profile Ordered. EDMS 08:17 Complete Blood Count Ordered. EDMS 08:17 Drug Eval Toxicology ED Only Ordered. EDMS 08:17 Ethyl Alcohol (ethanol) Ordered. EDMS 08:17 HCG,Serum Qualitative Ordered. EDMS 08:17 Liver Profile Ordered. EDMS 08:17 Salicylate Level Ordered. EDMS 08:17 Thyroid Stimulating Hormone Ordered. EDMS 08:17 BED REQUEST+ADM ordered. EDMS 08:38 [facility] Payment Agreement was scanned into [employer] and attached to record. mm15 09:02 Complete Blood Count Reviewed. ml 09:02 Drug Eval Toxicology ED Only Reviewed. ml 09:02 HCG,Serum Qualitative Reviewed. ml 09:13 Consult PFS/PSA/Slater Apprentice ordered. ml 09:51 Acetaminophen Level Reviewed. ml 09:51 Basic Metabolic Profile Reviewed. ml 09:51 Salicylate Level Reviewed. ml 09:51 Ethyl Alcohol (ethanol) Reviewed. ml 09:51 HCG,Serum Qualitative Reviewed. ml 09:51 Liver Profile Reviewed. ml 09:51 Thyroid Stimulating Hormone Reviewed. ml 11:31 Consult PFS/PSA/Slater Apprentice complete. jl 12:14 Consult PFS/PSA/Slater Apprentice complete. jl 12:19 Admission / Observation Status ordered. EDMS 12:19 REGULAR DIET ordered. EDMS 15:33 T-Sheet-- Draft Copy was scanned into [employer] and attached to record. gb Administered Medications: 08:43 Drug: Activated Charcoal (1g/kg) 70 grams [activated charcoal 25 gram/120 mL oral jmk suspension (6720 drps)] Route: PO; 09:11 CANCELLED (Other Intervention Used): LORazepam 1 mg PO once jmk Critical Care Time: 09:16 Critical care time: Bedside Care: 90 minutes. Total time: 90 minutes ml Signatures: Dispatcher [employer] EDMD Fabi Whitney MD MD ml Jobson, Karen, RN RN Caesar BriggsRN Thiago Myers, PSA PSA Jaimie Parikh, Reg Reg David Patiño mm15 Jazzy Shields, BYRON BRYOLOGIST rs6 The chart was reviewed and I authenticate all verbal orders and agree with the evaluation and treatment provided.Corrections: (The following items were deleted from the chart) 09:11 09:05 LORazepam 1 mg PO once ordered. percy Attachments: 08:38 [facility] Payment Agreement mm15 15:33 T-Sheet-- Draft Copy gb Chart Complete MTDD
== END 2016-07-09 10:00 | disposition home or self-care (01) ==
LOC: M ED 07:46 → M ED INP 12:14 → M PCU 16:34
PROVIDERS: ADMIT Internal Medicine; ATTEND Internal Medicine
DX: T43.201A Poisoning by unspecified antidepressants, accidental (unintentional), initial encounter (principal); L70.8 Other acne; F32.9 Major depressive disorder, single episode, unspecified; F41.9 Anxiety disorder, unspecified; Z79.899 Other long term (current) drug therapy; F17.210 Nicotine dependence, cigarettes, uncomplicated
CPT/HCPCS: 36415; 80048; 80053; 80076; 80306; 84443; 84703; 85027; 93005; 93041; 99283; G0480

== ENCOUNTER 2017-01-02 15:18 | Emergency (ER) | payer OTHER ==
[~2017-01-02] VITALS: Ht 162.6 cm; Wt 73.5 kg
[~2017-01-02 15:18] MED LIST changes: +DOXY-278 PO; +FLUO20CA19 PO; +WELLTAB40 PO
[2017-01-02 15:19] VITALS: BP 126/80
== END 2017-01-02 17:37 | disposition left against medical advice (07) ==
LOC: M ED 17:25
DX: M54.9 Dorsalgia, unspecified (principal); Z53.21 Procedure and treatment not carried out due to patient leaving prior to being seen by health care provider

== ENCOUNTER → 2017-06-18 | Outpatient (CLI) | payer OTHER ==
[2017-06-18 11:50] LABS: ALBUMIN 4.2 GM/DL (3.2-5.2); ALKALINE PHOSPHATASE 91 U/L (45-117); ALT/SGPT 32 U/L (12-78); AST/SGOT 15 U/L (7-37); BILIRUBIN,DIRECT 0.2 MG/DL (0.0-0.2); BILIRUBIN,TOTAL 0.5 MG/DL (0.2-1.0); TOTAL PROTEIN 7.2 GM/DL (6.4-8.2)
== END ==
LOC: M LAB 10:26
DX: K80.20 Calculus of gallbladder without cholecystitis without obstruction (principal)
CPT/HCPCS: 80076

== ENCOUNTER 2017-07-01 12:37 | Day surgery (SDC) | payer OTHER ==
[2017-07-01] MEDS ORDERED: NEOSTIGMINE 10 MG/10 ML VIAL (J2710) (12:38)
[2017-07-01] MEDS ORDERED: LR 1,000 ML IV ×2 (12:45→15:45)
[2017-07-01 13:29] LABS: CONTROL LINE UCG INT CTR LINE PRESENT; URINE PREG TEST NEGATIVE (NEGATIVE)
[2017-07-01] MEDS: CEFAZOLIN SOD 1 GM in APPROPRIATE DILUENT 1 EA IV (14:15)
[2017-07-01] MEDS ORDERED: ROCURONIUM BROMIDE 50 MG/5 ML VIAL As Ordered ×2 (14:27→14:54)
[2017-07-01] MEDS ORDERED: KETOROLAC 60 MG/2 ML VIAL (J1885) As Ordered (14:27)
[2017-07-01] MEDS ORDERED: GLYCOPYRROLATE INJ 0.2 MG/ML 2 ML VIAL As Ordered (14:27)
[2017-07-01] MEDS ORDERED: ePHEDrine INJ 50 MG/ML VIAL As Ordered (14:27)
[2017-07-01] MEDS ORDERED: dexameTHASONE 4 MG/ML 1ML VIAL (J1100) As Ordered (14:27)
[2017-07-01] MEDS ORDERED: MIDAZOLAM INJ 2 MG/2 ML VIAL (J2250) As Ordered (14:27)
[2017-07-01] MEDS ORDERED: NEOSTIGMINE 10 MG/10 ML VIAL (J2710) As Ordered (14:27)
[2017-07-01] MEDS ORDERED: fentaNYL 250 MCG/5 ML INJECTION (J3010) As Ordered (14:27)
[2017-07-01] MEDS ORDERED: ONDANSETRON 4MG/2ML VIAL (J2405) As Ordered (14:27)
[2017-07-01] MEDS ORDERED: PROPOFOL 200 MG/20 ML VIAL As Ordered (14:27)
[2017-07-01] MEDS ORDERED: LIDOCAINE 2% INJ 100 MG/5 ML SDV (FOR ANES.) As Ordered (14:27)
[2017-07-01] MEDS: LIDOCAINE W/EPINEPHRINE 1% 20ML VIAL As Ordered (15:07)
[2017-07-01] MEDS: BUPIVACAINE HCL 0.25% 30 ML VIAL As Ordered (15:07)
[2017-07-01] MEDS ORDERED: PERCOCET 5MG/325MG TAB PO (15:45)
[2017-07-01] MEDS ORDERED: fentaNYL 100 MCG/2 ML INJECTION (J3010) IV (15:45)
[2017-07-01] MEDS ORDERED: MORPHINE 2 MG/ML 1ML SYRINGE (J2270) IV (15:45)
[2017-07-01] MEDS ORDERED: ONDANSETRON 4MG/2ML VIAL (J2405) IV ×2 (15:45)
[2017-07-01] MEDS ORDERED: NORCO, ANEXSIA 5/325MG TABLET (HYDROcodone/ACETAMINOPHEN) PO (15:45)
[2017-07-01] MEDS ORDERED: KETOROLAC 30 MG/ML VIAL (J1885) IV (20:00)
== END 2017-07-01 17:17 | disposition home or self-care (01) ==
LOC: M SDC 12:37
DX: K80.10 Calculus of gallbladder with chronic cholecystitis without obstruction (principal); I34.1 Nonrheumatic mitral (valve) prolapse; R06.83 Snoring; J00 Acute nasopharyngitis [common cold]; F41.9 Anxiety disorder, unspecified; F32.9 Major depressive disorder, single episode, unspecified; Z72.0 Tobacco use; Z97.5 Presence of (intrauterine) contraceptive device
CPT/HCPCS: 47562

== ENCOUNTER 2018-09-29 12:01 | Emergency (ER) | payer OTHER ==
[~2018-09-29] VITALS: Ht 162.6 cm; Wt 75.8 kg
[~2018-09-29 12:01] MED LIST changes: -DOXY-278 PO; +DOXY-350 PO; +MIRE1IUD IU
[2018-09-29] MEDS ORDERED: BUPR300T34 (12:11)
[2018-09-29] MEDS ORDERED: DULO1CAP2 (12:11)
[2018-09-29] MEDS ORDERED: NS 1,000 ML IV ONE (14:00)
[2018-09-29 14:38] LABS: BASO % 0.4 % (0.0-1.0); EOS # 0.1 10^3/uL (0.0-0.50); EOS % 1.2 % (0.0-3.0); HEMATOCRIT 40.2 % (36.0-47.0); HEMOGLOBIN 13.2 g/dl (12.0-15.5); LYMPH # 1.9 10^3/uL (1.5-4.5); LYMPH % 22.3 % (24.0-44.0); MEAN CORPUSCULAR HEMOGLOBIN 28.8 pg (27.0-33.0); MEAN CORPUSCULAR HGB CONC 32.8 g/dl (32.0-36.5); MEAN CORPUSCULAR VOLUME 87.8 fl (80.0-96.0); MONO # 0.6 10^3/uL (0.0-0.8); MONO % 6.9 % (0.0-5.0); NEUTROPHILS # 5.8 10^3/uL (1.8-7.7); NEUTROPHILS % 68.8 % (36.0-66.0); PLATELET COUNT, AUTOMATED 242 10^3/uL (150-450); RED BLOOD COUNT 4.58 10^6/uL (4.00-5.40); WHITE BLOOD COUNT 8.4 10^3/uL (4.0-10.0)
[2018-09-29 15:02] LABS: ALBUMIN 3.6 GM/DL (3.2-5.2); ALT/SGPT 162 U/L (12-78); BILIRUBIN,DIRECT 0.3 MG/DL (0.0-0.2); BILIRUBIN,TOTAL 0.6 MG/DL (0.2-1.0); BLOOD UREA NITROGEN 7 MG/DL (7-18); CALCIUM LEVEL 8.4 MG/DL (8.5-10.1); CARBON DIOXIDE LEVEL 28 MEQ/L (21-32); CHLORIDE LEVEL 106 MEQ/L (98-107); CK-MB VALUE MASS < 1.0 NG/ML (<3.6); CPK CREATINE PHOSPHOKINASE 46 U/L (26-192); CREATININE FOR GFR 0.64 MG/DL (0.55-1.30); GLOMERULAR FILTRATION RATE > 60.0 (>60); GLUCOSE, FASTING 92 MG/DL (70-100); LIPASE 108 U/L (73-393); MB/CK RELATIVE INDEX 2.17 (< OR =4); SODIUM LEVEL 140 MEQ/L (136-145); TOTAL PROTEIN 6.8 GM/DL (6.4-8.2); TROPONIN I < 0.02 NG/ML (< 0.10)
--- NOTE | 2018-09-29 16:34 | REP ---
REASON FOR EXAM: Right upper quadrant pain. COMPARISON EXAM: 06/09/2017 which showed cholelithiasis. The gallbladder has been surgically removed since the last exam. Multiple ultrasonographic images of liver show no abnormalities. There is no masses. There is no anterior hepatic or extrahepatic ductal dilatation. The common bile duct measures 8 mm in its greatest transverse dimension. Limited evaluation of the pancreas and right kidney showed no abnormalities. IMPRESSION:Status-post cholecystectomy. The examination is within the normal limits. Electronically Signed by Ben Riley DO 09/29/2018 04:48 P
[2018-09-29 16:48] VITALS: BP 146/88
--- NOTE | 2018-09-29 19:39 | ECGEPIP ---
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
[2018-09-30 09:56] LABS: HEPATITIS B SURFACE ANTIGEN NEGATIVE (NEGATIVE)
[2018-09-30 10:23] LABS: HEPATITIS B CORE ANTIBODY IGM NEGATIVE (NEGATIVE); HEPATITIS C VIRUS ABY INDEX < 0.0 INDEX (<0.8)
[2018-09-30 10:26] LABS: HEPATITIS A ANTIBODY IGM NEGATIVE (NEGATIVE)
== END 2018-09-29 16:53 | disposition home or self-care (01) ==
LOC: M ED 12:01
DX: M62.830 Muscle spasm of back (principal); R79.89 Other specified abnormal findings of blood chemistry; I10 Essential (primary) hypertension; F32.9 Major depressive disorder, single episode, unspecified; Z87.81 Personal history of (healed) traumatic fracture; I34.1 Nonrheumatic mitral (valve) prolapse; Z86.19 Personal history of other infectious and parasitic diseases; Z72.0 Tobacco use; Z82.49 Family history of ischemic heart disease and other diseases of the circulatory system; Z97.5 Presence of (intrauterine) contraceptive device; Z79.899 Other long term (current) drug therapy

== ENCOUNTER → 2018-10-13 | Outpatient (REF) | payer OTHER ==
[~2018-10-13] MED LIST changes: +BUPR300T34; +DULO1CAP2
[2018-10-13 19:49] LABS: ALBUMIN 4.1 GM/DL (3.2-5.2); ALT/SGPT 366 U/L (12-78); BILIRUBIN,TOTAL 0.6 MG/DL (0.2-1.0); BLOOD UREA NITROGEN 11 MG/DL (7-18); CALCIUM LEVEL 9.1 MG/DL (8.5-10.1); CARBON DIOXIDE LEVEL 25 MEQ/L (21-32); CHLORIDE LEVEL 106 MEQ/L (98-107); CREATININE FOR GFR 0.71 MG/DL (0.55-1.30); GLOMERULAR FILTRATION RATE > 60.0 (>60); GLUCOSE, FASTING 129 MG/DL (70-100); POTASSIUM SERUM 3.9 MEQ/L (3.5-5.1); SODIUM LEVEL 139 MEQ/L (136-145); TOTAL PROTEIN 6.8 GM/DL (6.4-8.2)
[2018-10-13 20:10] LABS: BASO % 0.4 % (0.0-1.0); EOS # 0.1 10^3/uL (0.0-0.50); EOS % 1.5 % (0.0-3.0); HEMATOCRIT 43.1 % (36.0-47.0); HEMOGLOBIN 14.3 g/dl (12.0-15.5); LYMPH # 2.4 10^3/uL (1.5-4.5); LYMPH % 29.4 % (24.0-44.0); MEAN CORPUSCULAR HEMOGLOBIN 29.9 pg (27.0-33.0); MEAN CORPUSCULAR HGB CONC 33.2 g/dl (32.0-36.5); MONO # 0.4 10^3/uL (0.0-0.8); MONO % 5.5 % (0.0-5.0); NEUTROPHILS % 62.8 % (36.0-66.0); PLATELET COUNT, AUTOMATED 268 10^3/uL (150-450); RED BLOOD COUNT 4.79 10^6/uL (4.00-5.40)
== END ==
LOC: M LAB REF 18:54
PROVIDERS: ATTEND Family Medicine Addiction Medicine
DX: R10.13 Epigastric pain (principal); R74.8 Abnormal levels of other serum enzymes; F32.9 Major depressive disorder, single episode, unspecified

== ENCOUNTER → 2018-10-22 | Outpatient (REF) | payer OTHER | LOC: M LAB REF 14:11 | PROVIDERS: ATTEND Physician Assistant | DX: N89.8 Other specified noninflammatory disorders of vagina (principal) ==

== ENCOUNTER → 2018-11-13 | Outpatient (REF) | payer OTHER, MEDICAID ==
[2018-11-13 19:33] LABS: ALBUMIN 3.9 GM/DL (3.2-5.2); ALT/SGPT 768 U/L (12-78); BILIRUBIN,TOTAL 0.6 MG/DL (0.2-1.0); BLOOD UREA NITROGEN 13 MG/DL (7-18); CALCIUM LEVEL 8.8 MG/DL (8.5-10.1); CARBON DIOXIDE LEVEL 26 MEQ/L (21-32); CHLORIDE LEVEL 106 MEQ/L (98-107); CREATININE FOR GFR 0.79 MG/DL (0.55-1.30); GLOMERULAR FILTRATION RATE > 60.0 (>60); GLUCOSE, FASTING 100 MG/DL (70-100); POTASSIUM SERUM 4.5 MEQ/L (3.5-5.1); SODIUM LEVEL 140 MEQ/L (136-145); TOTAL PROTEIN 6.8 GM/DL (6.4-8.2)
== END ==
LOC: M LAB REF 16:39
PROVIDERS: ATTEND Family Medicine Addiction Medicine
DX: R31.21 Asymptomatic microscopic hematuria (principal)

== ENCOUNTER → 2018-11-20 | Outpatient (REF) | payer OTHER, MEDICAID ==
[2018-11-20 17:59] LABS: BASO % 0.4 % (0.0-1.0); EOS # 0.1 10^3/uL (0.0-0.50); EOS % 1.9 % (0.0-3.0); HEMOGLOBIN 13.8 g/dl (12.0-15.5); LYMPH # 2.1 10^3/uL (1.5-4.5); LYMPH % 39.4 % (24.0-44.0); MEAN CORPUSCULAR HEMOGLOBIN 29.6 pg (27.0-33.0); MEAN CORPUSCULAR HGB CONC 32.1 g/dl (32.0-36.5); MEAN CORPUSCULAR VOLUME 92.3 fl (80.0-96.0); MONO # 0.3 10^3/uL (0.0-0.8); MONO % 5.6 % (0.0-5.0); NEUTROPHILS # 2.8 10^3/uL (1.8-7.7); NEUTROPHILS % 52.3 % (36.0-66.0); PLATELET COUNT, AUTOMATED 282 10^3/uL (150-450); RED BLOOD COUNT 4.66 10^6/uL (4.00-5.40); WHITE BLOOD COUNT 5.4 10^3/uL (4.0-10.0)
[2018-11-20 19:54] LABS: ALBUMIN 4.1 GM/DL (3.2-5.2); ALT/SGPT 401 U/L (12-78); BILIRUBIN,TOTAL 0.4 MG/DL (0.2-1.0); BLOOD UREA NITROGEN 13 MG/DL (7-18); CALCIUM LEVEL 8.7 MG/DL (8.5-10.1); CARBON DIOXIDE LEVEL 29 MEQ/L (21-32); CHLORIDE LEVEL 106 MEQ/L (98-107); CREATININE FOR GFR 0.64 MG/DL (0.55-1.30); GAMMA GLUTAMYLTRANSPEPTIDASE 962 U/L (5-55); GLOMERULAR FILTRATION RATE > 60.0 (>60); GLUCOSE, FASTING 109 MG/DL (70-100); IRON (FE) 156 UG/DL (50-170); POTASSIUM SERUM 3.9 MEQ/L (3.5-5.1); SODIUM LEVEL 141 MEQ/L (136-145); TOTAL PROTEIN 7.1 GM/DL (6.4-8.2)
[2018-11-23 10:19] LABS: HEPATITIS B SURFACE ANTIBODY POSITIVE (POSITIVE)
[2018-11-23 10:29] LABS: HEPATITIS B SURFACE ANTIGEN NEGATIVE (NEGATIVE)
[2018-11-23 10:57] LABS: HEPATITIS C VIRUS ABY INDEX 0.1 INDEX (<0.8)
== END ==
LOC: M LAB REF 16:40
PROVIDERS: ATTEND Family Medicine Addiction Medicine
DX: R74.8 Abnormal levels of other serum enzymes (principal)

== ENCOUNTER 2019-01-04 13:28 | Emergency (ER) | payer MEDICAID, OTHER ==
[~2019-01-04] VITALS: Ht 162.6 cm; Wt 72.7 kg
[~2019-01-04 13:28] MED LIST changes: -DULO1CAP2; +DULO1CAP5
[2019-01-04 14:05] LABS: BASO % 0.3 % (0.0-1.0); EOS # 0.2 10^3/uL (0.0-0.50); EOS % 1.3 % (0.0-3.0); HEMATOCRIT 41.6 % (36.0-47.0); HEMOGLOBIN 13.9 g/dl (12.0-15.5); LYMPH # 3.1 10^3/uL (1.5-4.5); LYMPH % 26.8 % (24.0-44.0); MEAN CORPUSCULAR HGB CONC 33.4 g/dl (32.0-36.5); MEAN CORPUSCULAR VOLUME 86.8 fl (80.0-96.0); MONO % 8.2 % (0.0-5.0); NEUTROPHILS # 7.3 10^3/uL (1.8-7.7); NEUTROPHILS % 63.1 % (36.0-66.0); PLATELET COUNT, AUTOMATED 293 10^3/uL (150-450); RED BLOOD COUNT 4.79 10^6/uL (4.00-5.40); WHITE BLOOD COUNT 11.5 10^3/uL (4.0-10.0)
[2019-01-04] MEDS ORDERED: ONDANSETRON 4MG/2ML VIAL (J2405) IV ONE (14:15)
[2019-01-04] MEDS ORDERED: NS 1,000 ML IV ONE (14:15)
[2019-01-04] MEDS ORDERED: MORPHINE 4 MG/ML 1ML VIAL/SYRINGE (J2270) IV ONE (14:15)
[2019-01-04 14:44] LABS: ALT/SGPT 583 U/L (12-78); BILIRUBIN,DIRECT 0.3 MG/DL (0.0-0.2); BLOOD UREA NITROGEN 12 MG/DL (7-18); CALCIUM LEVEL 9.4 MG/DL (8.5-10.1); CARBON DIOXIDE LEVEL 25 MEQ/L (21-32); CHLORIDE LEVEL 106 MEQ/L (98-107); CREATININE FOR GFR 0.63 MG/DL (0.55-1.30); GLOMERULAR FILTRATION RATE > 60.0 (>60); GLUCOSE, FASTING 121 MG/DL (70-100); LIPASE 86 U/L (73-393); POTASSIUM SERUM 4.5 MEQ/L (3.5-5.1); SODIUM LEVEL 138 MEQ/L (136-145); TOTAL PROTEIN 7.3 GM/DL (6.4-8.2)
[2019-01-04] MEDS ORDERED: ONDA4TAB6 PO (16:17)
[2019-01-04] MEDS ORDERED: OXYC-517 PO (16:17)
[2019-01-04 16:22] VITALS: BP 121/82
--- NOTE | 2019-01-04 19:10 | REP ---
Right quadrant sonography: History: History of biliary obstruction. Comparison sonography is from September 29, 2018. Findings: Scanning through the right upper quadrant of the abdomen demonstrates dilated intrahepatic bile ducts and the dilated CBD. The common bile duct measures 11 mm central near the rashawn hepatis and 18 mm at the distal pancreas. The gallbladder is surgically absent. There is no evidence of ascites. No focal liver lesion is seen. No pancreatic abnormalities observed. Right kidney measures 10.4 x 5.7 x 6.4 cm in diameter. No hydronephrosis seen. Impression: Moderate dilation of the extrahepatic biliary tree and mild intrahepatic biliary ductal dilation. Post cholecystectomy. No choledocholithiasis or mass lesion is appreciated by sonography. CBD 18 mm. In September 2018, CBD measurement was 8 mm. Electronically Signed by Jose C Braden MD 01/04/2019 07:57 P
--- NOTE | 2019-01-10 06:50 | ED PDOC ---
Post-Departure Follow-Up dr orellana and dr parra faxed formal report of liver us for fu Fabi Nielsen MD Jan 10, 2019 06:50
== END 2019-01-04 16:28 | disposition home or self-care (01) ==
LOC: M ED 13:28
DX: R94.5 Abnormal results of liver function studies (principal); K83.8 Other specified diseases of biliary tract; I10 Essential (primary) hypertension; F32.9 Major depressive disorder, single episode, unspecified; Z72.0 Tobacco use; Z79.3 Long term (current) use of hormonal contraceptives; Z79.899 Other long term (current) drug therapy
CPT/HCPCS: 76705; 80048; 80076; 83690; 85025; 96361; 96374; 96375; 99284; J2270; J2405

== ENCOUNTER → 2019-01-18 | Outpatient (CLI) | payer OTHER ==
[~2019-01-18] MED LIST changes: -BUPR300T34; +BUPR300T92; +ONDA4TAB6 PO; +OXYC-517 PO
== END ==
LOC: M RAD 18:05
PROVIDERS: ATTEND Internal Medicine Gastroenterology
DX: R94.5 Abnormal results of liver function studies (principal)

== ENCOUNTER 2019-01-27 11:07 | Day surgery (SDC) | payer OTHER ==
[~2019-01-27] VITALS: Ht 162.6 cm; Wt 73.5 kg
[~2019-01-27 11:07] MED LIST changes: +LIDOCAINE 2% INJ 100 MG/5 ML SDV (FOR ANES.) As Ordered ONE; +LR 1,000 ML IV ONE; +MIDAZOLAM INJ 2 MG/2 ML VIAL (J2250) As Ordered ONE; +ONDANSETRON 4MG/2ML VIAL (J2405) As Ordered ONE; +ROCURONIUM BROMIDE 50 MG/5 ML VIAL As Ordered ONE; +SUGAMMADEX SODIUM 500 MG/5 ML VIAL (BRIDION) As Ordered ONE; +dexameTHASONE 4 MG/ML 1ML VIAL (J1100) As Ordered ONE; +fentaNYL 100 MCG/2 ML INJECTION (J3010) As Ordered ONE; +propofoL 200 MG/20 ML VIAL As Ordered ONE
[2019-01-27 11:48] LABS: URINE PREG TEST NEGATIVE (NEGATIVE)
[2019-01-27] MEDS ORDERED: ISOVUE-300 61% 50ML VIAL (Q9967) As Ordered ONE (12:36)
[2019-01-27] MEDS ORDERED: propofoL 500 MG/50 ML VIAL As Ordered ONE (13:11)
--- NOTE | 2019-01-27 14:54 | ROOR ---
Patient Name: Aisha Palm Procedure Date: 01/27/2019 12:42 PM Date of : 1985 Age: 33 Room: [facility] Gender: Female Note Status: Finalized Procedure: ERCP Indications: Abdominal pain of suspected biliary origin, Biliary dilation on Computed Tomogram Scan, Suspected bile duct stone(s), Elevated liver enzymes Providers: Mynor Aden MD Referring MD: Caesar ACEVES MD Requesting Provider: Medicines: Monitored Anesthesia Care Complications: No immediate complications. Procedure: Pre-Anesthesia Assessment: - Prior to the procedure, a History and Physical was performed, and patient medications and allergies were reviewed. The patient is competent. The risks and benefits of the procedure and the sedation options and risks were discussed with the patient. All questions were answered and informed consent was obtained. Patient identification and proposed procedure were verified by the physician, the nurse and the anesthesiologist in the procedure room. Mental Status Examination: alert and oriented. Airway Examination: normal oropharyngeal airway and neck mobility. Respiratory Examination: clear to auscultation. CV Examination: normal. Prophylactic Antibiotics: The patient does not require prophylactic antibiotics. Prior Anticoagulants: The patient has taken no previous anticoagulant or antiplatelet agents. ASA Grade Assessment: II - A patient with mild systemic disease. After reviewing the risks and benefits, the patient was deemed in satisfactory condition to undergo the procedure. The anesthesia plan was to use general anesthesia. Immediately prior to administration of medications, the patient was re-assessed for adequacy to receive sedatives. The heart rate, respiratory rate, oxygen saturations, blood pressure, adequacy of pulmonary ventilation, and response to care were monitored throughout the procedure. The physical status of the patient was re-assessed after the procedure. The Duodenoscope was introduced through the mouth, and advanced to the duodenum and used to inject contrast into the bile duct. The ERCP was accomplished without difficulty. The patient tolerated the procedure well. 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 The esophagus was successfully intubated under direct vision. The scope was advanced to a normal major papilla in the descending duodenum without detailed examination of the pharynx, larynx and associated structures, and upper GI tract. The upper GI tract was grossly normal. A 0.035 inch x 260 cm straight Hydra Jagwire was passed into the biliary tree. The short-nosed traction sphincterotome was passed over the guidewire and the bile duct was then deeply cannulated. Contrast was injected. I personally interpreted the bile duct images. Ductal flow of contrast was adequate. Image quality was adequate. Contrast extended to the entire biliary tree. The main bile duct was diffusely dilated, acquired. The largest diameter was 12 mm. Biliary sphincterotomy was made with a traction (standard) sphincterotome using ERBE electrocautery. The sphincterotomy oozed blood. The biliary tree was swept with a 12 mm balloon starting at the bifurcation. Sludge was swept from the duct. Cells for cytology were obtained by brushing in the lower third of the main bile duct. The biliary orifice was stenotic. This appeared indeterminate (neither benign nor malignant). The lower third of the main bile duct was obstructed by a narrowing that did not appear to be a stone or a mass. One 10 Fr by 7 cm plastic stent with a single external flap and a single internal flap was placed into the common bile duct. Bile flowed through the stent. The stent was in good position. Impression: - Biliary papillary stenosis (indeterminate) vs possible distal biliary tract obstruction from stricture was found in the lower third of the main duct. - The entire main bile duct was dilated, acquired. - A biliary sphincterotomy was performed. - The biliary tree was swept and sludge was found. - Cells for cytology obtained in the lower third of the main duct. - One plastic stent was placed into the common bile duct. Recommendation: - The patient will be observed post-procedure, until all discharge criteria are met. - Patient has a contact number available for emergencies. The signs and symptoms of potential delayed complications were discussed with the patient. Return to normal activities tomorrow. Written discharge instructions were provided to the patient. - Avoid aspirin and nonsteroidal anti-inflammatory medicines for 5 days. - Clear liquid diet for 1 day, then advance as tolerated to resume regular diet. 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 - Await cytology results. - Return to this GI lab for stent removal at by EGD or repeat ERCP depending on work up results in 6 weeks. - Return to GI clinic in [facility] (address [address], [place] [address], [place] [address]) in 4 -- 6 weeks. Please call GI clinic @ [phone] for apppointment date and time. - Return to primary care physician. Mynor Aden MD Mynor Aden MD 01/27/2019 2:54:31 PM Electronically signed by Mynor Aden MD Number of Addenda: 0 Note Initiated On: 01/27/2019 12:42 PM Estimated Blood Loss: Estimated blood loss was minimal.
[2019-01-27] MEDS ORDERED: PERCOCET 5MG/325MG TAB PO PRN (15:00)
[2019-01-27] MEDS ORDERED: fentaNYL 100 MCG/2 ML INJECTION (J3010) IV PRN (15:00)
[2019-01-27] MEDS ORDERED: LR 1,000 ML IV SCH ×2 (15:00)
[2019-01-27] MEDS ORDERED: ONDANSETRON 4MG/2ML VIAL (J2405) IV PRN (15:00)
--- NOTE | 2019-01-27 15:13 | REP ---
C-ARM VIEWS DURING ERCP: Multiple C-Arm views are performed during ERCP exam. A small amount of contrast is injected into the common bile duct, partially opacifying the duct. Catheter manipulation is then performed. There is placement of a stent in the distal common bile duct. 48 seconds fluoroscopy time utilized. Electronically Signed by Jonah Jerez MD 01/27/2019 03:38 P
[2019-01-27 16:05] VITALS: BP 117/77
== END 2019-01-27 16:15 | disposition home or self-care (01) ==
LOC: M SDC 11:07
PROVIDERS: ATTEND Internal Medicine Gastroenterology
DX: K83.1 Obstruction of bile duct (principal); K83.8 Other specified diseases of biliary tract; R10.9 Unspecified abdominal pain; R74.8 Abnormal levels of other serum enzymes; I34.0 Nonrheumatic mitral (valve) insufficiency; F32.9 Major depressive disorder, single episode, unspecified; F41.9 Anxiety disorder, unspecified; Z79.899 Other long term (current) drug therapy; F17.210 Nicotine dependence, cigarettes, uncomplicated
CPT/HCPCS: 43264; 43274; 74330; 84703; 88104; C1876; J1100; J2250; J2405; J3010; Q9967

== ENCOUNTER → 2019-03-30 | Outpatient (CLI) | payer OTHER ==
[~2019-03-30] MED LIST changes: +BUPR300T34; -BUPR300T92; -LIDOCAINE 2% INJ 100 MG/5 ML SDV (FOR ANES.) As Ordered ONE; -LR 1,000 ML IV ONE; -MIDAZOLAM INJ 2 MG/2 ML VIAL (J2250) As Ordered ONE; -ONDANSETRON 4MG/2ML VIAL (J2405) As Ordered ONE; -ROCURONIUM BROMIDE 50 MG/5 ML VIAL As Ordered ONE; -SUGAMMADEX SODIUM 500 MG/5 ML VIAL (BRIDION) As Ordered ONE; -dexameTHASONE 4 MG/ML 1ML VIAL (J1100) As Ordered ONE; -fentaNYL 100 MCG/2 ML INJECTION (J3010) As Ordered ONE; -propofoL 200 MG/20 ML VIAL As Ordered ONE
[2019-03-30 12:35] LABS: BASO % 0.4 % (0.0-1.0); EOS # 0.1 10^3/uL (0.0-0.5); EOS % 1.5 % (0.0-3.0); HEMATOCRIT 46.1 % (36.0-47.0); LYMPH # 2.5 10^3/uL (1.5-5.0); LYMPH % 33.6 % (24.0-44.0); MEAN CORPUSCULAR HEMOGLOBIN 29.5 pg (27.0-33.0); MEAN CORPUSCULAR HGB CONC 32.5 g/dl (32.0-36.5); MEAN CORPUSCULAR VOLUME 90.6 fl (80.0-96.0); MONO # 0.6 10^3/uL (0.0-0.8); MONO % 8.3 % (0.0-5.0); NEUTROPHILS # 4.1 10^3/uL (1.5-8.5); NEUTROPHILS % 55.9 % (36.0-66.0); PLATELET COUNT, AUTOMATED 281 10^3/uL (150-450); RED BLOOD COUNT 5.09 10^6/uL (4.00-5.40); WHITE BLOOD COUNT 7.4 10^3/uL (4.0-10.0)
[2019-03-30 12:49] LABS: ALBUMIN 4.1 GM/DL (3.2-5.2); ALT/SGPT 33 U/L (12-78); BILIRUBIN,DIRECT < 0.1 MG/DL (0.0-0.2); BILIRUBIN,TOTAL 0.5 MG/DL (0.2-1.0); TOTAL PROTEIN 7.4 GM/DL (6.4-8.2)
[2019-03-30 14:14] LABS: H PYLORI QUALITATIVE IgG NEGATIVE (NEGATIVE)
[2019-04-01 08:09] LABS: IGASUB2 131.9 mg/dL (73.2-301.2); IGASUB3 30.2 mg/dL (13.4-97.9); IgA SERUM (part of Subclasses) 188 mg/dL (87-352); TISSUE TRANSGLUTAMINASE IgA <2 U/mL (0-3)
== END ==
LOC: M LAB 10:54
PROVIDERS: ATTEND Internal Medicine Gastroenterology
DX: K83.1 Obstruction of bile duct (principal)

== ENCOUNTER → 2019-10-05 | Outpatient (CLI) | payer OTHER ==
[~2019-10-05] MED LIST changes: -BUPR300T34; +BUPR300T92 PO; +CYMB60CA3 PO; -FLUO20CA19 PO; +FLUO20CA22 PO
== END ==
LOC: M LABSMTC 09:44
PROVIDERS: ATTEND Anesthesiology
DX: Z01.812 Encounter for preprocedural laboratory examination (principal); Z11.59 Encounter for screening for other viral diseases
CPT/HCPCS: C8903; U0003

== ENCOUNTER 2019-10-08 12:56 | Day surgery (SDC) | payer OTHER ==
[~2019-10-08] VITALS: Ht 162.6 cm; Wt 78.5 kg
[2019-10-08] MEDS: NS 1,000 ML IV ONE (07:00)
[~2019-10-08 12:56] MED LIST changes: +LIDOCAINE 2% 100MG/5ML SDV (FOR ANES.) As Ordered ONE; +propofoL 200 MG/20 ML VIAL As Ordered ONE
[2019-10-08] MEDS ORDERED: fentaNYL 100 MCG/2 ML INJECTION (J3010) As Ordered ONE (13:38)
[2019-10-08 15:05] VITALS: BP 118/85
--- NOTE | 2019-10-08 15:10 | ROOR ---
Patient Name: Aisha Palm Procedure Date: 10/08/2019 2:10 PM Date of : 1985 Age: 34 Room: [facility] Gender: Female Note Status: Finalized Procedure: Upper GI endoscopy Indications: Biliary stent removal Providers: Mynor Aden MD Referring MD: Family Practice/Adult section [facility] Requesting Provider: Medicines: Monitored Anesthesia Care Complications: No immediate complications. Procedure: Pre-Anesthesia Assessment: - Prior to the procedure, a History and Physical was performed, and patient medications and allergies were reviewed. The patient is competent. The risks and benefits of the procedure and the sedation options and risks were discussed with the patient. All questions were answered and informed consent was obtained. Patient identification and proposed procedure were verified by the physician, the nurse and the anesthesiologist in the procedure room. Mental Status Examination: normal. Airway Examination: normal oropharyngeal airway and neck mobility. Respiratory Examination: clear to auscultation. CV Examination: normal. Prophylactic Antibiotics: The patient does not require prophylactic antibiotics. Prior Anticoagulants: The patient has taken no previous anticoagulant or antiplatelet agents. ASA Grade Assessment: II - A patient with mild systemic disease. After reviewing the risks and benefits, the patient was deemed in satisfactory condition to undergo the procedure. The anesthesia plan was to use monitored anesthesia care (MAC). Immediately prior to administration of medications, the patient was re-assessed for adequacy to receive sedatives. The heart rate, respiratory rate, oxygen saturations, blood pressure, adequacy of pulmonary ventilation, and response to care were monitored throughout the procedure. The physical status of the patient was re-assessed after the procedure. The Endoscope was introduced through the mouth, and advanced to the second part of duodenum. The upper GI endoscopy was accomplished without difficulty. The patient tolerated the procedure well. Findings: The examined esophagus was normal. Two non-bleeding linear gastric ulcers with a clean ulcer base (Asael Class III) were found in the gastric antrum. The largest lesion was 6 mm in largest dimension. Biopsies were taken with a cold forceps for histology. Verification of patient identification for the specimen was done by the physician and nurse using the patient's name, date and medical record number. Estimated blood loss was minimal. The duodenal bulb, second portion of the duodenum and area of the papilla were normal. There is no endoscopic evidence of stent in the ampulla. Impression: - Normal esophagus. - Non-bleeding gastric ulcers with a clean ulcer base (Asael Class III). Biopsied. - Normal duodenal bulb, second portion of the duodenum and area of the papilla. Recommendation: - Patient has a contact number available for emergencies. The signs and symptoms of potential delayed complications were discussed with the patient. Return to normal activities tomorrow. Written discharge instructions were provided to the patient. - Resume previous diet. - Continue present medications. - Use Prilosec (omeprazole) 40 mg PO Daily - to be taken manager applied on empty stomach for 8 weeks. - Perform a flat plate and upright abdominal x-ray at appointment to be scheduled to confirm passage of CBD stent. - Telephone GI clinic for pathology results in 1 week. - Return to primary care physician. Mynor Aden MD Mynor Aden MD 10/08/2019 3:09:44 PM Electronically signed by Mynor Aden MD Number of Addenda: 0 Note Initiated On: 10/08/2019 2:10 PM Estimated Blood Loss: Estimated blood loss was minimal.
== END 2019-10-08 15:43 | disposition home or self-care (01) ==
LOC: M OPP 12:56
PROVIDERS: ATTEND Internal Medicine Gastroenterology
DX: K25.9 Gastric ulcer, unspecified as acute or chronic, without hemorrhage or perforation (principal); Z46.59 Encounter for fitting and adjustment of other gastrointestinal appliance and device; I34.9 Nonrheumatic mitral valve disorder, unspecified; I10 Essential (primary) hypertension; F17.210 Nicotine dependence, cigarettes, uncomplicated; Z79.899 Other long term (current) drug therapy
CPT/HCPCS: 43239; 88305; J3010

== ENCOUNTER → 2020-10-25 | Outpatient (REF) | payer OTHER ==
[~2020-10-25] MED LIST changes: -LIDOCAINE 2% 100MG/5ML SDV (FOR ANES.) As Ordered ONE; -propofoL 200 MG/20 ML VIAL As Ordered ONE
[2020-10-25 21:25] LABS: APPEARANCE, URINE TURBID (CLEAR); BACTERIA, URINE AUTO 2+ (NEGATIVE); BILIRUBIN, URINE AUTO NEGATIVE (NEGATIVE); BLOOD, URINE BLOOD 2+ (NEGATIVE); COLOR, URINE YELLOW (YELLOW); GLUCOSE, URINE (UA) AUTO NEGATIVE (NEGATIVE); KETONE, URINE AUTO NEGATIVE (NEGATIVE); LEUKOCYTE ESTERASE, URINE AUTO 2+ (NEGATIVE); MUCUS, URINE SMALL (NEGATIVE); NITRITE, URINE AUTO NEGATIVE (NEGATIVE); PROTEIN, URINE AUTO 2+ mg/dL (NEGATIVE); RBC, URINE AUTO TNTC /HPF (0-3); RENAL EPITHELIAL CELLS 1 /HPF; SPECIFIC GRAVITY URINE AUTO 1.024 (1.002-1.035); SQUAMOUS EPITHELIAL CELL UR AU 4 /HPF (0-6); UROBILINOGEN, URINE AUTO 0.2 mg/dL (0.0-2.0); WBC, URINE AUTO 148 /HPF (0-3)
== END ==
LOC: M LAB REF 21:04
PROVIDERS: ATTEND Physician Assistant
DX: N39.0 Urinary tract infection, site not specified (principal)

== ENCOUNTER → 2022-04-11 | Outpatient (REF) | payer OTHER ==
[~2022-04-11] MED LIST changes: -CYMB60CA3 PO; +CYMB60CA4 PO; -DOXY-350 PO; +DOXY-444 PO
[2022-04-11 18:51] LABS: BASO # 0.1 10^3/uL (0.0-0.2); BASO % 0.8 % (0.0-1.0); EOS # 0.5 10^3/uL (0.0-0.5); HEMATOCRIT 47.2 % (36.0-47.0); HEMOGLOBIN 14.7 g/dl (12.0-15.5); LYMPH # 2.7 10^3/uL (1.5-5.0); LYMPH % 29.8 % (24.0-44.0); MEAN CORPUSCULAR HEMOGLOBIN 28.8 pg (27.0-33.0); MEAN CORPUSCULAR HGB CONC 31.1 g/dl (32.0-36.5); MEAN CORPUSCULAR VOLUME 92.4 fl (80.0-96.0); MONO # 0.5 10^3/uL (0.0-0.8); MONO % 5.4 % (2.0-8.0); NEUTROPHILS # 5.3 10^3/uL (1.5-8.5); PLATELET COUNT, AUTOMATED 359 10^3/uL (150-450); RED BLOOD COUNT 5.11 10^6/uL (4.00-5.40); WHITE BLOOD COUNT 9.1 10^3/uL (4.0-10.0)
[2022-04-11 19:26] LABS: ALBUMIN 4.1 G/DL (3.2-5.2); ALT/SGPT 36 U/L (7.0-40); BILIRUBIN,TOTAL 0.3 MG/DL (0.3-1.2); BLOOD UREA NITROGEN 9 MG/DL (9-23); CALCIUM LEVEL 9.2 MG/DL (8.5-10.1); CARBON DIOXIDE LEVEL 24 MMOL/L (20-31); CHLORIDE LEVEL 102 MMOL/L (98-107); CREATININE FOR GFR 0.63 MG/DL (0.55-1.30); GLOMERULAR FILTRATION RATE > 60.0 (>60); GLUCOSE, FASTING 93 MG/DL (60-100); POTASSIUM SERUM 4.8 MMOL/L (3.5-5.1); RHEUMATOID FACTOR QUANT < 3.5 IU/ML (<14); SODIUM LEVEL 136 MMOL/L (136-145); TOTAL PROTEIN 7.2 G/DL (5.7-8.2); URIC ACID 5.4 MG/DL (3.1-7.8)
[2022-04-11 20:15] LABS: ERYTHROCYTE SEDIMENTATION RATE 35 mm/hr (0-20)
== END ==
LOC: M LAB REF 16:07
PROVIDERS: ATTEND Physician Assistant
DX: Z86.79 Personal history of other diseases of the circulatory system (principal); M25.552 Pain in left hip; M25.562 Pain in left knee; M79.0 Rheumatism, unspecified